=== PATIENT | female | born 1990 | race Caucasian/White ===

== ENCOUNTER 2017-09-28 09:03 | Emergency (ER) | payer OTHER, SELFPAY ==
[2017-09-28 11:05] LABS: Absolute Monocytes 0.5 K/uL (0.1-1.3); Absolute Neutrophil 5.4 K/uL (1.8-8.0); Basophils % 0.3 % (0-1.3); Eosinophils % 1.4 % (0-4.4); Hematocrit 39.3 % (36.0-45.0); Lymphocytes % 25.3 % (15.3-44.8); MCH 28.5 pg (27.0-35.0); MCV 83.9 fL (80-100); MPV 8.9 fL (7.6-11.3); Monocytes % 6.4 % (3.3-12.3); RBC Red Blood Cell Count 4.68 M/uL (3.86-4.86)
[2017-09-28 11:17] LABS: Bicarbonate 26 mEq/L (21-31); Glucose Level 65 mg/dL (65-120); Potassium 3.5 mEq/L (3.6-5.0); Sodium Level 139 mEq/L (135-145)
[2017-09-28 11:18] LABS: BUN Blood Urea Nitrogen 14 mg/dL (6-20)
[2017-09-28 11:26] LABS: HCG, Quantitative 149.1 mIU/mL (<5)
--- NOTE | 2017-09-28 13:05 | RAD REPORT ---
EXAM DESCRIPTION: US - Transvaginal OB - 09/28/2017 12:56 pm CLINICAL HISTORY: Pelvic pain. COMPARISON: None. FINDINGS: The uterus is normal in size, shape and echotexture. The uterus measures 7.5 x 6.7 x 5.4 c m. The endometrial stripe measures 17 mm, thickened. No gestational sac seen. Both ovaries are normal in size, shape and echotexture. The right ovary measures 6.2 x 4.6 x 3.1 cm. The left ovary measures 3.8 x 2.1 x 1.9 cm. 3.3 x 2.9 cm right ovarian cyst. No adnexal masses. Normal Doppler blood flow was demonstrated to both ovaries. No pelvic ascites. IMPRESSION: Thickened endometrial stripe is noted without evidence of a gestational sac at this time .In the setting of a elevated HCG level, the findings would indicate of unknown location. Advise followup sonogram in 7-10 days and serial HCG level measurements.
--- NOTE | 2017-09-28 13:09 | EDPHYS ---
Physician Documentation [facility] Name: Tabby Mcneill Age: 26 yrs Sex: Female : 1990 Arrival Date: 09/28/2017 Time: 09:06 Bed 24 Private MD: None, None ED Physician Shailesh Draper HPI: 09/28 10:30 This 26 yrs old Female presents to ER via Ambulatory with complaints of kb check. 10:30 The patient presents to the emergency department with history of ectopic pregnancies. kb course: care: none, Leakage of Fluid: none appreciated, Ultrasound: the patient has not had an ultrasound, Risk/complications: no obvious risks or complications are appreciated. Previous pregnancies: in previous pregnancies patient has had ectopic . Associated signs and symptoms: The patient has no apparent associated signs or symptoms. The patient has not experienced similar symptoms in the past. The patient has not recently seen a physician. Pt states she has had two ectopic pregnancies in the past and was told she needs to be checked for that each time she finds out she is . States she found out she was this morning so she came to make sure it wasn't ectopic. States she was able to take methotrexate both times so no surgical intervention was necessary. 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 - Social history:: Smoking status: Patient/guardian denies using tobacco. ROS: 10:30 Constitutional: Negative for fever, chills, and weight loss, ENT: Negative for injury, kb pain, and discharge, Neck: Negative for injury, pain, and swelling, Cardiovascular: Negative for chest pain, palpitations, and edema, Respiratory: Negative for shortness of breath, cough, wheezing, and pleuritic chest pain, Abdomen/GI: Negative for abdominal pain, nausea, vomiting, diarrhea, and constipation, Back: Negative for injury and pain, : Negative for injury, bleeding, discharge, and swelling, MS/Extremity: Negative for injury and deformity, Skin: Negative for injury, rash, and discoloration, Neuro: Negative for headache, weakness, numbness, tingling, and seizure. Exam: 10:30 Constitutional: This is a well developed, well nourished patient who is awake, alert, kb and in no acute distress. Head/Face: Normocephalic, atraumatic. ENT: Nares patent. No nasal discharge, no septal abnormalities noted. Tympanic membranes are normal and external auditory canals are clear. Oropharynx with no redness, swelling, or masses, exudates, or evidence of obstruction, uvula midline. Mucous membranes moist. Neck: Trachea midline, no thyromegaly or masses palpated, and no cervical lymphadenopathy. Supple, full range of motion without nuchal rigidity, or vertebral point tenderness. No Meningismus. Chest/axilla: Normal chest wall appearance and motion. Nontender with no deformity. No lesions are appreciated. Cardiovascular: Regular rate and rhythm with a normal S1 and S2. No gallops, murmurs, or rubs. Normal PMI, no JVD. No pulse deficits. Respiratory: Lungs have equal breath sounds bilaterally, clear to auscultation and percussion. No rales, rhonchi or wheezes noted. No increased work of breathing, no retractions or nasal flaring. Abdomen/GI: Soft, non-tender, with normal bowel sounds. No distension or tympany. No guarding or rebound. No evidence of tenderness throughout. Back: No spinal tenderness. No costovertebral tenderness. Full range of motion. Skin: Warm, dry with normal turgor. Normal color with no rashes, no lesions, and no evidence of cellulitis. MS/ Extremity: Pulses equal, no cyanosis. Neurovascular intact. Full, normal range of motion. Neuro: Awake and alert, GCS 15, oriented to person, place, time, and situation. Cranial nerves II-XII grossly intact. Motor strength 5/5 in all extremities. Sensory grossly intact. Cerebellar exam normal. Normal gait. Vital Signs: 09:28 BP 135 / 70; Pulse 70; Resp 16; Temp 97.3; Pulse Ox 99% on R/A; Weight 86.18 kg; Height iw 5 ft. 8 in. (172.72 cm); Pain 0/10; 12:09 BP 114 / 64; Pulse 56; Resp 18; Pulse Ox 100% on R/A; aj1 13:10 BP 107 / 65; Pulse 62; Resp 18; Pulse Ox 99% ; aj1 09:28 Body Mass Index 28.89 (86.18 kg, 172.72 cm) iw MDM: 10:02 Patient medically screened. kb 10:30 Data reviewed: vital signs, nurses notes. Data interpreted: Pulse oximetry: on room air kb is 99 %. Interpretation: normal. 13:06 Counseling: I had a detailed discussion with the patient and/or guardian regarding: the kb historical points, exam findings, and any diagnostic results supporting the discharge/admit diagnosis, lab results, radiology results, the need for outpatient follow up, an OB/Gyne specialist, to return to the emergency department if symptoms worsen or persist or if there are any questions or concerns that arise at home. 13:09 ED course: Educated on need for follow up US and serial HCG levels. Verbal kb understanding received. . 09/28 10:10 Order name: Quantitative Hcg; Complete Time: 11:37 kb 09/28 10:10 Order name: Abo/rh Typing; Complete Time: 11:37 kb 09/28 10:10 Order name: Basic Metabolic Panel; Complete Time: 11:37 kb 09/28 10:10 Order name: CBC with Diff; Complete Time: 11:12 kb 09/28 10:43 Order name: Urine Dipstick--Ancillary (enter results) ag 09/28 10:43 Order name: Urine --Ancillary (enter results) ag 09/28 10:10 Order name: Urine Test (obtain specimen); Complete Time: 10:13 kb 09/28 10:10 Order name: IV Saline Lock; Complete Time: 12:08 kb 09/28 10:10 Order name: Labs collected and sent; Complete Time: 12:08 kb 09/28 10:10 Order name: NPO; Complete Time: 10:13 kb 09/28 10:10 Order name: Urine Dipstick-Ancillary (obtain specimen); Complete Time: 10:13 kb 09/28 11:38 Order name: US Transvaginal Ob; Complete Time: 13:05 kb Administered Medications: No medications were administered Disposition: 09/28/17 13:09 Discharged to Home. Impression: Less than 8 weeks gestation of . - Condition is Stable. - Discharge Instructions: First Trimester of , [id number]. - Medication Reconciliation Form, Thank You Letter, Antibiotic Education, Prescription Opioid Use form. - Follow up: Emergency Department; When: As needed; Reason: Worsening of condition. Follow up: Private Physician; When: 2 - 3 days; Reason: Recheck today's complaints, Continuance of care, Re-evaluation by your physician. Addendum: 10/01/2017 08:18 Co-signature as Attending Physician, Shailesh Draper MD I agree with the assessment and c vázquez plan of care. Signatures: Dispatcher [employer] EDOK Randi Beaver, LEELEE-C LEELEE-Philly Rodrigues RN RN aj1 Shailesh Draper MD MD cha Williams, Irene RN RN iw Corrections: (The following items were deleted from the chart) 09/28 13:37 13:09 09/28/2017 13:09 Discharged to Home. Impression: Less than 8 weeks gestation of aj1 . Condition is Stable. Forms are Medication Reconciliation Form, Thank You Letter, Antibiotic Education, Prescription Opioid Use. Follow up: Emergency Department; When: As needed; Reason: Worsening of condition. Follow up: Private Physician; When: 2 - 3 days; Reason: Recheck today's complaints, Continuance of care, Re-evaluation by your physician. kb
--- NOTE | 2017-09-28 13:09 | ER ---
Nurse's Notes [facility] Name: Tabby Mcneill Age: 26 yrs Sex: Female : 1990 Arrival Date: 09/28/2017 Time: 09:06 Bed 24 Private MD: None, None Diagnosis: Less than 8 weeks gestation of Presentation: 09/28 09:25 Presenting complaint: Patient states: had had 2 previous ectopic pregnancies, just iw found out she is , was told that she needed to be checked for ectopic if she ever became again, pt denies pian, denies bleeding, does not currently have OB, but was seen by Dr. Mathew in January. Transition of care: patient was not received from another setting of care. Onset of symptoms was September 28, 2017. Initial Sepsis Screen: Does the patient meet any 2 criteria? No. Patient's initial sepsis screen is negative. Does the patient have a suspected source of infection? No. Patient's initial sepsis screen is negative. Care prior to arrival: None. 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 - Social history:: Smoking status: Patient/guardian denies using tobacco. Screenin:17 Abuse screen: Denies threats or abuse. Denies injuries from another. Nutritional aj1 screening: No deficits noted. Tuberculosis screening: No symptoms or risk factors identified. 13:37 Fall Risk None identified. aj1 Assessment: 10:17 General: Appears in no apparent distress. comfortable, Behavior is calm, cooperative, aj1 appropriate for age. Pain: Denies pain. Neuro: Level of Consciousness is awake, alert, obeys commands, Oriented to person, place, time, situation, Speech is normal, Facial symmetry appears normal. Cardiovascular: Patient's skin is warm and dry. Respiratory: Airway is patent Respiratory effort is even, unlabored, Respiratory pattern is regular, symmetrical. GI: No signs and/or symptoms were reported involving the gastrointestinal system. : Reports that she has had 2 previous ectopic pregnancies, with the first she had vaginal bleeding, but with the second she did not have any symptoms. States that she was told by her OB to come in immediately if she had a positive test. Denies vaginal bleeding, cramping. EENT: No signs and/or symptoms were reported regarding the EENT system. Derm: No signs and/or symptoms reported regarding the dermatologic system. Skin is pink, warm \T\ dry. normal. Musculoskeletal: No signs and/or symptoms reported regarding the musculoskeletal system. Circulation, motion, and sensation intact. 11:10 Reassessment: Patient appears in no apparent distress at this time. No changes from aj1 previously documented assessment. Patient and/or family updated on plan of care and expected duration. Pain level reassessed. Patient is alert, oriented x 3, equal unlabored respirations, skin warm/dry/pink. 12:09 Reassessment: Patient appears in no apparent distress at this time. No changes from aj1 previously documented assessment. Patient and/or family updated on plan of care and expected duration. Pain level reassessed. Patient is alert, oriented x 3, equal unlabored respirations, skin warm/dry/pink. 13:10 Reassessment: Patient appears in no apparent distress at this time. No changes from aj1 previously documented assessment. Patient and/or family updated on plan of care and expected duration. Pain level reassessed. Patient is alert, oriented x 3, equal unlabored respirations, skin warm/dry/pink. Vital Signs: 09:28 BP 135 / 70; Pulse 70; Resp 16; Temp 97.3; Pulse Ox 99% on R/A; Weight 86.18 kg; Height iw 5 ft. 8 in. (172.72 cm); Pain 0/10; 12:09 BP 114 / 64; Pulse 56; Resp 18; Pulse Ox 100% on R/A; aj1 13:10 BP 107 / 65; Pulse 62; Resp 18; Pulse Ox 99% ; aj1 09:28 Body Mass Index 28.89 (86.18 kg, 172.72 cm) ED Course: 09:06 Patient arrived in ED. mr 09:07 None, None is Private Physician. mr 09:28 Triage completed. iw 09:28 Arm band placed on. iw 09:53 Randi Beaver [facility]C [facility]. kb 09:53 Shailesh Draper MD is Attending Physician. kb 10:00 Philly Mathews, RN is Primary Nurse. aj1 10:17 Patient has correct armband on for positive identification. Bed in low position. Call aj1 light in reach. Side rails up X 1. 10:17 No provider procedures requiring assistance completed. aj1 12:56 Ultrasound completed. Patient tolerated well. cy 12:57 US Transvaginal Ob In Process Unspecified. EDMS 13:36 IV discontinued, intact, bleeding controlled, No redness/swelling at site. Pressure aj1 dressing applied. Administered Medications: No medications were administered Outcome: 13:09 Discharge ordered by . kb 13:37 Discharged to home ambulatory. aj1 13:37 Condition: good 13:37 Discharge instructions given to patient, Instructed on discharge instructions, follow up and referral plans. Demonstrated understanding of instructions, follow-up care. 13:37 Patient left the ED. aj1 Signatures: Dispatcher [employer] EDMS Randi Beaver FNP-C FNP-Philly Rodrigues, RN RN Preeti Flores Irene, RN RN Jolanta Nur
[2017-09-28 13:40] LABS: Urine Blood NEGATIVE (NEG); Urine Glucose NEGATIVE (NEG); Urine Protein NEGATIVE (NEG); Urine Specific Gravity 1.015 (1.005-1.030); Urine pH 6.5 (5.0-7.0)
== END 2017-09-28 13:37 | disposition home or self-care (01) ==
LOC: ER 09:03
DX: Z32.01 Encounter for pregnancy test, result positive (principal)
CPT/HCPCS: 36415; 76817; 80048; 81003; 81025; 84702; 85025; 86900; 86901; 99283

== ENCOUNTER 2017-10-23 16:56 | Emergency (ER) | payer OTHER ==
[2017-10-23 18:30] LABS: Urine Blood 2+ (NEG); Urine Glucose NEGATIVE (NEG); Urine Protein NEGATIVE (NEG)
[2017-10-23 19:22] LABS: Absolute Lymphocytes (CBC) 2.7 K/uL (0.7-4.9); Absolute Monocytes 0.5 K/uL (0.1-1.3); Absolute Neutrophil 5.3 K/uL (1.8-8.0); Eosinophils % 1.8 % (0-4.4); Hematocrit 38.7 % (36.0-45.0); Lymphocytes % 30.7 % (15.3-44.8); MCV 84.9 fL (80-100); MPV 8.7 fL (7.6-11.3); Monocytes % 5.9 % (3.3-12.3); RBC Red Blood Cell Count 4.56 M/uL (3.86-4.86)
[2017-10-23] MEDS ORDERED: NA CHLORIDE 0.9% 1,000 ML ONE (19:23)
[2017-10-23 19:35] LABS: Bicarbonate 27 mEq/L (21-31); Glucose Level 103 mg/dL (65-120); Potassium 3.6 mEq/L (3.6-5.0); Sodium Level 138 mEq/L (135-145)
[2017-10-23 19:36] LABS: BUN Blood Urea Nitrogen 8 mg/dL (6-20)
--- NOTE | 2017-10-23 20:33 | RAD REPORT ---
EXAM DESCRIPTION: US - Transvaginal OB - 10/23/2017 6:59 pm CLINICAL HISTORY: with abdominal pain and vaginal bleeding COMPARISON: None. FINDINGS: The uterus is retroverted. The endometrial stripe measures 24 millimeters. A gestational s ac is not seen. A 2.8 centimeter right ovarian cyst is present. A 2.6 centimeter structure abuts the left ovary. It has an echogenic rim and a sonolucent center. It contains a small lucency which could represent a yolk sac. In addition there is a 6 millimeter echoge shila structure which could represent an embryo. Cardiac activity was not seen. A small amount of free fluid is present within the pelvis. IMPRESSION: Nonvisualization of a gestational sac within the endometrium. A 2.6 centimeter structure within the left adnexa suspicious for an ectopic .
[2017-10-23 20:57] LABS: Albumin 4.1 g/dL (3.2-5.5); Bilirubin Direct 0.1 mg/dL (0-0.2); Bilirubin Total 0.5 mg/dL (0.3-1.2); Protein, Total 7.4 g/dL (6.0-8.3)
--- NOTE | 2017-10-23 21:17 | P.CNS ---
Date of Consult: 10/23/17 CC: bleeding x2 days. Known HPI: pt is familiar to me from clinic and presents today due to VB. Per review of records, she is 8 weeks . However, she has a h/o ectopic pregnancies x2 in the past, treated with MTX. Last known ectopic and treatment was associated with the right ovary. Currently, she denies pain. with hx ectopic treated with MTX x2 occurrences previously LMP: 08/28/2017, corresponding to 8w0d U/S review: tretroverted uterus with thickened endometrial stripe without IUP. There is a 2.6 cm structure para- ovarian on the left with pole and no cardiac activity Vitals: reviewed, normal B-hC mIU/mL CBC/CMP/T&S reviewed. LFTs: WNL PMHX: endometriosis?/PCOS PSHx: appendectomy Meds: None Allergies: NKDA Social Hx: no substance use, denies tobacco use or alcohol intake PE: Gen: NAD, appears comfortable Heart: RRR, normal S1/S2 Lungs: CTA B/L, normal effort Abd: soft, NT, ND Pelvic: Deferred Skin: warm, dry, no rashes, normal turgor Psych: appropriate, tearful during discussion A/p: 26 y.o. with left tubal ectopic Based on findings and history, discussed with patient surgery versus treatment with MTX 50 mg/m^2 x1 IM. She declines surgical intervention. Patient aware of need for follow up labs on days 4 and 7 and possible need to retreat pending levels. She agrees to close follow with serial measurements of serum hCG as indicated. Orders given for outpatient lab draw. I strongly recommend contraception and follow up studies including HSG versus tubal dye study prior to attempting once again due to risk of ectopic recurrence. Pt verbalized understanding and agreed. Questions answered. Plan of care discussed with ER physician Dr. Segal.
--- NOTE | 2017-10-23 22:50 | EDPHYS ---
Physician Documentation [facility] Name: Tabby Lagos Age: 26 yrs Sex: Female : 1990 Arrival Date: 10/23/2017 Time: 16:58 Bed 26 Private MD: Noemí Alvarez ED Physician Esteban Segal HPI: 10/23 22:13 This 26 yrs old Female presents to ER via Ambulatory with complaints of gs Vaginal Bleeding, + Preg <12wks. 22:13 The patient presents to the emergency department with vaginal bleeding, described as gs spotting. The estimated gestational age is 6 weeks. Associated signs and symptoms: Pertinent negatives: abdominal pain, chest pain. The patient has experienced similar episodes in the past, a few times. The patient has been recently seen by a physician: Dr. alvarez. 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 - Social history:: Smoking status: Patient/guardian denies using tobacco. - Ebola Screening: : Patient negative for fever greater than or equal to 101.5 degrees Fahrenheit, and additional compatible Ebola Virus Disease symptoms Patient denies exposure to infectious person Patient denies travel to an Ebola-affected area in the 21 days before illness onset No symptoms or risks identified at this time. ROS: 22:13 All other systems are negative. gs Exam: 22:13 Head/Face: Normocephalic, atraumatic. Eyes: Pupils equal round and reactive to light, gs extra-ocular motions intact. Lids and lashes normal. Conjunctiva and sclera are non-icteric and not injected. Cornea within normal limits. Periorbital areas with no swelling, redness, or edema. ENT: Nares patent. No nasal discharge, no septal abnormalities noted. Tympanic membranes are normal and external auditory canals are clear. Oropharynx with no redness, swelling, or masses, exudates, or evidence of obstruction, uvula midline. Mucous membranes moist. Neck: Trachea midline, no thyromegaly or masses palpated, and no cervical lymphadenopathy. Supple, full range of motion without nuchal rigidity, or vertebral point tenderness. No Meningismus. Chest/axilla: Normal chest wall appearance and motion. Nontender with no deformity. No lesions are appreciated. Cardiovascular: Regular rate and rhythm with a normal S1 and S2. No gallops, murmurs, or rubs. Normal PMI, no JVD. No pulse deficits. Respiratory: Lungs have equal breath sounds bilaterally, clear to auscultation and percussion. No rales, rhonchi or wheezes noted. No increased work of breathing, no retractions or nasal flaring. Abdomen/GI: Soft, non-tender, with normal bowel sounds. No distension or tympany. No guarding or rebound. No evidence of tenderness throughout. Back: No spinal tenderness. No costovertebral tenderness. Full range of motion. Skin: Warm, dry with normal turgor. Normal color with no rashes, no lesions, and no evidence of cellulitis. MS/ Extremity: Pulses equal, no cyanosis. Neurovascular intact. Full, normal range of motion. Neuro: Awake and alert, GCS 15, oriented to person, place, time, and situation. Cranial nerves II-XII grossly intact. Motor strength 5/5 in all extremities. Sensory grossly intact. Cerebellar exam normal. Normal gait. 22:13 Constitutional: The patient appears alert, awake. Vital Signs: 17:22 BP 132 / 75; Pulse 76; Resp 16; Temp 98.1; Pulse Ox 98% on R/A; Weight 90.72 kg; Height aj 5 ft. 8 in. (172.72 cm); 19:14 BP 123 / 68; Pulse 73; Temp 98.7; Pulse Ox 99% ; jb5 19:43 BP 127 / 77; Pulse 73; Resp 18; Pulse Ox 100% ; aj1 20:30 BP 122 / 75; Pulse 75; Resp 18; Pulse Ox 99% ; aj1 21:40 Weight 90.72 kg; Height 5 ft. 8 in. (172.72 cm); kr2 22:58 BP 129 / 91; Pulse 73; Resp 16; Pulse Ox 99% on R/A; kr2 21:40 Body Mass Index 30.41 (90.72 kg, 172.72 cm) kr2 MDM: 18:24 Patient medically screened. gs 22:13 Differential diagnosis: threatened Ab, inevitable Ab, ectopic . Data reviewed: vital signs, nurses notes. Response to treatment: the patient's symptoms have markedly improved after treatment, and as a result, I will discharge patient. Physician consultation: Noemí Alvarez MD and will see patient in ED. 10/23 18:20 Order name: Urine Dipstick--Ancillary (enter results) 10/23 18:20 Order name: Urine --Ancillary (enter results) 10/23 18:24 Order name: Quantitative Hcg; Complete Time: 20:27 10/23 18:24 Order name: Basic Metabolic Panel; Complete Time: 20:27 10/23 18:24 Order name: CBC with Diff; Complete Time: 20:27 10/23 18:24 Order name: IV Saline Lock; Complete Time: 19:15 10/23 18:24 Order name: Labs collected and sent; Complete Time: 19:15 10/23 18:24 Order name: US Transvaginal Ob; Complete Time: 20:36 10/23 18:57 Order name: Type And Screen; Complete Time: 20:27 10/23 20:35 Order name: Hepatic Function 10/23 20:36 Order name: Liver (Hepatic) Function; Complete Time: 21:14 [facility] 10/23 18:24 Order name: NPO; Complete Time: 19:08 Administered Medications: Discontinued: NS 0.9% 1000 ml IV at 125 ml/hr continuous 19:24 Drug: NS 0.9% 1000 ml Route: IV; Rate: 125 ml/hr; Site: left antecubital; aj1 22:55 Follow up: Response: No adverse reaction; IV Status: Order to discontinue infusion kr2 22:39 Drug: methotrexate 50 mg Route: IM; Site: right gluteus; kr2 22:58 Follow up: Response: No adverse reaction kr2 Disposition: 10/23/17 22:49 Discharged to Home. Impression: Ectopic . - Condition is Stable. - Discharge Instructions: Methotrexate Treatment for an Ectopic , Ectopic , [id number]. - Medication Reconciliation Form, Thank You Letter, Antibiotic Education, Prescription Opioid Use form. - Follow up: Noemí Alvarez; When: 1 - 2 days; Reason: Re-evaluation by your physician. - Problem is new. - Symptoms have improved. Signatures: Dispatcher [employer] [facility] Philly Mathews RN RN aj1 Edyta Puga RN RN aj Esteban Segal MD MD gs Starr Purcell RN RN kr2 Cristobal Rojas MD MD ps1 Corrections: (The following items were deleted from the chart) 19:17 18:25 ABO/RH TYPING+[id number].BRZ ordered. [facility] 23:01 22:49 10/23/2017 22:49 Discharged to Home. Impression: Ectopic . Condition is kr2 Stable. Discharge Instructions: Methotrexate Treatment for an Ectopic , Ectopic , [id number]. Forms are Medication Reconciliation Form, Thank You Letter, Antibiotic Education, Prescription Opioid Use. Follow up: Noemí Alvarez; When: 1 - 2 days; Reason: Re-evaluation by your physician. Problem is new. Symptoms have improved. ps1
--- NOTE | 2017-10-23 22:50 | ER ---
Nurse's Notes [facility] Name: Tabby Lagos Age: 26 yrs Sex: Female : 1990 Arrival Date: 10/23/2017 Time: 16:58 Bed 26 Private MD: Noemí Mathew Diagnosis: Ectopic Presentation: 10/23 17:21 Presenting complaint: Patient states: Vaginal bleeding with clots that started aj yesterday and recently increased. Transition of care: patient was not received from another setting of care. Onset of symptoms was October 23, 2017. Risk Assessment: Do you want to hurt yourself or someone else? Patient reports no desire to harm self or others. Care prior to arrival: None. 17:21 Method Of Arrival: Ambulatory aj 17:21 Acuity: PACO 3 aj 21:00 Initial Sepsis Screen: Does the patient meet any 2 criteria? No. Patient's initial aj1 sepsis screen is negative. Does the patient have a suspected source of infection? No. Patient's initial sepsis screen is negative. Triage Assessment: 17:22 General: Appears in no apparent distress. comfortable, Behavior is calm, cooperative, aj appropriate for age. Pain: Denies pain. Neuro: Level of Consciousness is awake, alert, obeys commands, Oriented to person, place, time, situation, Appropriate for age. Respiratory: Airway is patent Respiratory effort is even, unlabored, Respiratory pattern is regular, symmetrical. : Reports vaginal bleeding that is with clots, light flow. Derm: Skin is intact, is healthy with good turgor, Skin is pink, warm \T\ dry. normal. 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 - Social history:: Smoking status: Patient/guardian denies using tobacco. - Ebola Screening: : Patient negative for fever greater than or equal to 101.5 degrees Fahrenheit, and additional compatible Ebola Virus Disease symptoms Patient denies exposure to infectious person Patient denies travel to an Ebola-affected area in the 21 days before illness onset No symptoms or risks identified at this time. Screenin:18 Abuse screen: Denies threats or abuse. Denies injuries from another. Nutritional aj1 screening: No deficits noted. Tuberculosis screening: No symptoms or risk factors identified. 21:00 Fall Risk None identified. kr2 Assessment: 18:18 General: Appears in no apparent distress. comfortable, Behavior is calm, cooperative, aj1 appropriate for age. Pain: Denies pain. Neuro: Level of Consciousness is awake, alert, obeys commands, Oriented to person, place, time, situation. Cardiovascular: Patient's skin is warm and dry. Respiratory: Airway is patent Respiratory pattern is regular, symmetrical. GI: No signs and/or symptoms were reported involving the gastrointestinal system. : Reports vaginal bleeding that is with clots, light flow, Patient has had 2 previous ectopic pregnancies. EENT: No signs and/or symptoms were reported regarding the EENT system. Derm: No signs and/or symptoms reported regarding the dermatologic system. Skin is pink, warm \T\ dry. normal. Musculoskeletal: No signs and/or symptoms reported regarding the musculoskeletal system. Circulation, motion, and sensation intact. 19:43 Reassessment: Patient appears in no apparent distress at this time. No changes from aj1 previously documented assessment. Patient and/or family updated on plan of care and expected duration. Pain level reassessed. Patient is alert, oriented x 3, equal unlabored respirations, skin warm/dry/pink. 20:58 Reassessment: Patient appears in no apparent distress at this time. No changes from aj1 previously documented assessment. Patient and/or family updated on plan of care and expected duration. Pain level reassessed. Patient is alert, oriented x 3, equal unlabored respirations, skin warm/dry/pink. Vital Signs: 17:22 BP 132 / 75; Pulse 76; Resp 16; Temp 98.1; Pulse Ox 98% on R/A; Weight 90.72 kg; Height aj 5 ft. 8 in. (172.72 cm); 19:14 BP 123 / 68; Pulse 73; Temp 98.7; Pulse Ox 99% ; jb5 19:43 BP 127 / 77; Pulse 73; Resp 18; Pulse Ox 100% ; aj1 20:30 BP 122 / 75; Pulse 75; Resp 18; Pulse Ox 99% ; aj1 21:40 Weight 90.72 kg; Height 5 ft. 8 in. (172.72 cm); kr2 22:58 BP 129 / 91; Pulse 73; Resp 16; Pulse Ox 99% on R/A; kr2 21:40 Body Mass Index 30.41 (90.72 kg, 172.72 cm) kr2 ED Course: 16:58 Patient arrived in ED. as 16:58 Noemí Mathew MD is Private Physician. as 17:22 Triage completed. aj 17:22 Arm band placed on left wrist. Patient placed in waiting room, Patient notified of wait aj time. 18:06 Esteban Segal MD is Attending Physician. gs 18:08 Philly Mathews, RN is Primary Nurse. aj1 18:18 Patient has correct armband on for positive identification. Bed in low position. Call aj1 light in reach. Side rails up X 1. 18:18 No provider procedures requiring assistance completed. aj1 18:59 US Transvaginal Ob In Process Unspecified. EDMS 19:12 Inserted saline lock: 20 gauge in right antecubital area, using aseptic technique. jb5 Blood collected. 22:49 Noemí Mathew MD is Referral Physician. ps1 23:00 IV discontinued, intact, bleeding controlled, No redness/swelling at site. Pressure kr2 dressing applied. Administered Medications: Discontinued: NS 0.9% 1000 ml IV at 125 ml/hr continuous 19:24 Drug: NS 0.9% 1000 ml Route: IV; Rate: 125 ml/hr; Site: left antecubital; aj1 22:55 Follow up: Response: No adverse reaction; IV Status: Order to discontinue infusion kr2 22:39 Drug: methotrexate 50 mg Route: IM; Site: right gluteus; kr2 22:58 Follow up: Response: No adverse reaction kr2 Outcome: 22:49 Discharge ordered by . ps1 22:59 Discharged to home ambulatory, with family. kr2 22:59 Condition: good 22:59 Discharge instructions given to patient, Instructed on discharge instructions, follow up and referral plans. medication usage, follow up lab ordered for morning of 10/27/17 Demonstrated understanding of instructions, follow-up care, medications, lab draw on 10/27/17 and methotrexate 23:01 Patient left the ED. kr2 Signatures: Dispatcher [employer] EDME Reid Philly, RN RN susi1 Edyta Puga RN RN aj Martinez, Amelia as Broussard, Jennifer jb5 Esteban Segal MD MD gs Starr Purcell RN RN kr2 Cristobal Rojas MD MD ps1 Corrections: (The following items were deleted from the chart) 23:05 23:05 Response: No adverse reaction; IV Status: Order to discontinue infusion kr2 kr2
[2017-10-23] MEDS ORDERED: METHOTREXATE 25 MG/ML VIAL IM ONE (23:00)
== END 2017-10-23 23:01 | disposition home or self-care (01) ==
LOC: ER 16:56
DX: O00.90 Unspecified ectopic pregnancy without intrauterine pregnancy (principal); Z3A.01 Less than 8 weeks gestation of pregnancy
CPT/HCPCS: 36415; 76817; 80048; 80076; 81003; 81025; 84702; 85025; 86850; 86900; 86901; 96360; 96361; 96372; 99284; J7030

== ENCOUNTER 2017-11-08 17:58 | Emergency (ER) | payer OTHER ==
--- OUTSIDE RECORDS SUMMARY | 2017-11-08 18:00 | XMS REPORT ---
:1990 Author Organization [employer] Care Team Providers Name Role Phone Noemí Mathew Provider Role Unavailable Allergies, Adverse Reactions, Alerts Substance Reaction Event Type N.K.D.A. Info Not Available Non Drug Allergy Problems Problem Type Condition Code Onset Dates Condition Status Assessment Left tubal without O00.102 Active intrauterine Assessment History of ectopic Z87.59 Active Problem History of ectopic Z87.59 Active Medications No Known Medications Results No Known Results Summary Purpose [employer] Submission
[2017-11-08 20:06] LABS: Absolute Lymphocytes (CBC) 2.5 K/uL (0.7-4.9); Absolute Monocytes 0.5 K/uL (0.1-1.3); Absolute Neutrophil 5.9 K/uL (1.8-8.0); Basophils % 0.9 % (0-1.3); Eosinophils % 2.2 % (0-4.4); Hematocrit 37.6 % (36.0-45.0); Lymphocytes % 27.1 % (15.3-44.8); MCH 28.9 pg (27.0-35.0); MCV 85.4 fL (80-100); MPV 8.2 fL (7.6-11.3); Monocytes % 5.9 % (3.3-12.3)
[2017-11-08 20:20] LABS: Urine Blood NEGATIVE (NEG); Urine Glucose NEGATIVE (NEG); Urine Protein NEGATIVE (NEG)
[2017-11-08 20:34] LABS: Potassium 3.4 mmol/L (3.5-5.1)
--- NOTE | 2017-11-08 20:42 | ER ---
Nurse's Notes [facility] Name: Tabby Lagos Age: 26 yrs Sex: Female : 1990 Arrival Date: 11/08/2017 Time: 18:00 Bed 26 Private MD: Diagnosis: Ectopic , unspecified Presentation: 11/08 18:43 Presenting complaint: Patient states: Im here for a repeat HCG test, the first one was sg drawn on the 14, denies pain nausea vomiting, fever. reports just here to have my levels checked. Transition of care: patient was not received from another setting of care. Onset of symptoms was November 08, 2017. Risk Assessment: Do you want to hurt yourself or someone else? Patient reports no desire to harm self or others. Initial Sepsis Screen: Does the patient meet any 2 criteria? No. Patient's initial sepsis screen is negative. Does the patient have a suspected source of infection? No. Patient's initial sepsis screen is negative. Care prior to arrival: None. 18:43 Method Of Arrival: Ambulatory sg 18:43 Acuity: PACO 3 sg Triage Assessment: 19:48 General: Appears in no apparent distress. comfortable, well groomed, well developed, kr2 well nourished, Behavior is calm, cooperative, appropriate for age. Pain: Denies pain. Historical: - Allergies: 18:45 NKA; sg - PMHx: 18:45 ectopic X2; sg - PSHx: 18:45 Appendectomy; sg - Immunization history:: Adult Immunizations up to date. - Social history:: Smoking status: Patient/guardian denies using tobacco. - Ebola Screening: : Patient negative for fever greater than or equal to 101.5 degrees Fahrenheit, and additional compatible Ebola Virus Disease symptoms Patient denies exposure to infectious person Patient denies travel to an Ebola-affected area in the 21 days before illness onset No symptoms or risks identified at this time. Screenin:47 Abuse screen: Denies threats or abuse. Denies injuries from another. Nutritional kr2 screening: No deficits noted. Tuberculosis screening: No symptoms or risk factors identified. Fall Risk None identified. Assessment: 20:08 General: Appears in no apparent distress. comfortable, well groomed, well developed, kr2 well nourished, Behavior is calm, cooperative, appropriate for age. Pain: Denies pain. Neuro: Level of Consciousness is awake, alert, obeys commands, Oriented to person, place, time, situation, Appropriate for age. Cardiovascular: Capillary refill < 3 seconds in bilateral fingers Patient's skin is warm and dry. Respiratory: Airway is patent Respiratory effort is even, unlabored, Respiratory pattern is regular, symmetrical. GI: Abdomen is flat, non-distended. : Urine is clear. EENT: Oral mucosa is moist. Derm: Skin is intact, is healthy with good turgor, Skin is pink, warm \T\ dry. Musculoskeletal: Circulation, motion, and sensation intact. 20:56 Reassessment: Patient appears in no apparent distress at this time. Patient and/or kr2 family updated on plan of care and expected duration. Pain level reassessed. Patient is alert, oriented x 3, equal unlabored respirations, skin warm/dry/pink. Patient denies pain at this time. Vital Signs: 18:48 BP 135 / 92; Pulse 85; Resp 16 S; Temp 98.0; Pulse Ox 100% on R/A; Weight 89.81 kg; sg Height 5 ft. 8 in. (172.72 cm); Pain 0/10; 20:33 BP 122 / 71; Pulse 77; Resp 16; Pulse Ox 99% on R/A; mt 18:48 Body Mass Index 30.11 (89.81 kg, 172.72 cm) sg ED Course: 18:00 Patient arrived in ED. as 18:44 Triage completed. sg 18:44 Arm band placed on left wrist. sg 19:43 Esteban Segal MD is Attending Physician. gs 19:47 Starr Purcell, JOSIAS is Primary Nurse. kr2 19:48 Patient has correct armband on for positive identification. Bed in low position. Call kr2 light in reach. Side rails up X 1. Pulse ox on. NIBP on. Door closed. Warm blanket given. Head of bed elevated. 20:00 Inserted saline lock: 22 gauge in right antecubital area, using aseptic technique. kr2 Blood collected. 20:00 Urine collected: clean catch specimen, clear. kr2 20:41 Noemí Mathew MD is Referral Physician. gs 20:56 No provider procedures requiring assistance completed. IV discontinued, intact, kr2 bleeding controlled, No redness/swelling at site. Pressure dressing applied. Administered Medications: No medications were administered Outcome: 20:41 Discharge ordered by . shilpi 20:56 Discharged to home ambulatory, with family. kr2 20:56 Condition: good 20:56 Discharge instructions given to patient, Instructed on discharge instructions, follow up and referral plans. Demonstrated understanding of instructions, follow-up care. 20:57 Patient left the ED. kr2 Signatures: Fletcher Holman RN RN Joana Segovia Moriah mt Starr, Gregory, MD MD gs Reaves, Karey, RN RN kr2 Corrections: (The following items were deleted from the chart) 18:46 18:43 Acuity: PACO 5 valentin
--- NOTE | 2017-11-08 20:42 | EDPHYS ---
Physician Documentation [facility] Name: Tabby Lagos Age: 26 yrs Sex: Female : 1990 Arrival Date: 11/08/2017 Time: 18:00 Bed 26 Private MD: ED Physician Esteban Segal HPI: 11/08 20:39 This 26 yrs old Female presents to ER via Ambulatory with complaints of HCG gs check. 20:39 Onset: The symptoms/episode began/occurred 1 week(s) ago. treated for ectopic with gs methotrexate. Historical: - Allergies: 18:45 NKA; sg - PMHx: 18:45 ectopic X2; sg - PSHx: 18:45 Appendectomy; sg - Immunization history:: Adult Immunizations up to date. - Social history:: Smoking status: Patient/guardian denies using tobacco. - Ebola Screening: : Patient negative for fever greater than or equal to 101.5 degrees Fahrenheit, and additional compatible Ebola Virus Disease symptoms Patient denies exposure to infectious person Patient denies travel to an Ebola-affected area in the 21 days before illness onset No symptoms or risks identified at this time. ROS: 20:40 All other systems are negative. gs Exam: 20:40 Cardiovascular: Regular rate and rhythm with a normal S1 and S2. No gallops, murmurs, gs or rubs. Normal PMI, no JVD. No pulse deficits. Respiratory: Lungs have equal breath sounds bilaterally, clear to auscultation and percussion. No rales, rhonchi or wheezes noted. No increased work of breathing, no retractions or nasal flaring. Abdomen/GI: Soft, non-tender, with normal bowel sounds. No distension or tympany. No guarding or rebound. No evidence of tenderness throughout. Skin: Warm, dry with normal turgor. Normal color with no rashes, no lesions, and no evidence of cellulitis. MS/ Extremity: Pulses equal, no cyanosis. Neurovascular intact. Full, normal range of motion. Neuro: Awake and alert, GCS 15, oriented to person, place, time, and situation. Cranial nerves II-XII grossly intact. Motor strength 5/5 in all extremities. Sensory grossly intact. Cerebellar exam normal. Normal gait. 20:40 Constitutional: The patient appears alert, awake. Vital Signs: 18:48 BP 135 / 92; Pulse 85; Resp 16 S; Temp 98.0; Pulse Ox 100% on R/A; Weight 89.81 kg; sg Height 5 ft. 8 in. (172.72 cm); Pain 0/10; 20:33 BP 122 / 71; Pulse 77; Resp 16; Pulse Ox 99% on R/A; mt 18:48 Body Mass Index 30.11 (89.81 kg, 172.72 cm) MDM: 20:05 Patient medically screened. 20:40 Data reviewed: vital signs, nurses notes. 11/08 18:46 Order name: CBC with Diff; Complete Time: 20:37 rn 11/08 18:46 Order name: Basic Metabolic Panel; Complete Time: 20:37 rn 11/08 18:46 Order name: HCG-Quantitative; Complete Time: 20:37 rn 11/08 20:09 Order name: Urine Dipstick--Ancillary (enter results); Complete Time: 20:37 [facility] 11/08 20:11 Order name: Urine --Ancillary (enter results); Complete Time: 20:37 [facility] 11/08 18:46 Order name: IV Start; Complete Time: 20:04 rn 11/08 18:46 Order name: Urine Dipstick-Ancillary (obtain specimen); Complete Time: 20:04 rn Administered Medications: No medications were administered Disposition: 11/08/17 20:41 Discharged to Home. Impression: Ectopic , unspecified. - Condition is Stable. - Discharge Instructions: Ectopic , Methotrexate Treatment for an Ectopic . - Medication Reconciliation Form, Thank You Letter, Antibiotic Education, Prescription Opioid Use form. - Follow up: Noemí Mathew MD; When: 2 - 3 days; Reason: Re-evaluation by your physician. Signatures: Dispatcher [employer] EDWA Fletcher Holman RN RN Yordy Vazquez MD MD rn Starr, Gregory, MD MD gs Reaves, Karey RN RN kr2 Corrections: (The following items were deleted from the chart) 20:14 20:10 URINE --ANCILLARY+UC.LAB.BRZ ordered. EDWA EDMS 20:57 20:41 11/08/2017 20:41 Discharged to Home. Impression: Ectopic , unspecified. kr2 Condition is Stable. Forms are Medication Reconciliation Form, Thank You Letter, Antibiotic Education, Prescription Opioid Use. Follow up: Noemí Mathew; When: 2 - 3 days; Reason: Re-evaluation by your physician. gs
== END 2017-11-08 20:57 | disposition home or self-care (01) ==
LOC: ER 17:58
DX: O00.90 Unspecified ectopic pregnancy without intrauterine pregnancy (principal)
CPT/HCPCS: 36415; 80048; 81003; 81025; 84702; 85025; 99284

== ENCOUNTER 2021-05-30 10:17 | Emergency (ER) | payer BC, OTHER ==
--- OUTSIDE RECORDS SUMMARY | 2021-05-30 10:19 | XMS REPORT | Continuity of Care Document ---
:1990 Author Organization [facility] t Address [address] [place] [address] [address] [place] [address] Care Team Providers Name Role Phone Pcp, Does Not Have A Primary Care Physician Nurse, Db Urgent [facility] Attending Clinician Unavailable Dean MACHINE WASHER Attending Clinician DEAN Attending Clinician Unavailable Doctor Unassigned, Name Attending Clinician Unavailable Payers Payer Name Policy Type Policy Number Effective Date Expiration Date S ource Problems Condition Condition Condition Status Onset Resolution Last Treating Co mments Source Name Details Category Date Date Treatment Clinician Date History of History of Problem Active [facility] No known No known Disease Unive rs active active ity of problems problems [facility] Allergies, Adverse Reactions, Alerts Allergy Allergy Status Severity Reaction(s) Onset Inactive Treating Comm ents Source Name Type Date Date Clinician NO KNOWN Drug Active Univers ALLERGIE Class ity of S [facility] Social History Social Habit Start Date Stop Date Quantity Comments Source Exposure to Not sure [facility] SARS-CoV-2 (event) [facility]ica [facility] Branch Alcohol intake 2021-05-30 2021-05-30 0 /d [facility] 00:00:00 00:00:00 [facility] [place] Sex Assigned At [birth year] [facility] 00:00:00 00:00:00 [facility] Smoking Status Start Date Stop Date Source Never smoker [facility] Medications Ordered Filled Start Stop Current Ordering Indication Dosage Frequency Signature Comments Components Source Medication Medication Date Date Medication? Clinician (SIG) Name Name No known No Univers medications 3-13 ity of 18:48: [address] No known No Univers medications 3-13 ity of 18:48: [address] Vital Signs Vital Name Observation Time Observation Value Comments Source Systolic blood 2021-05-30 16:01:00 142 mm[Hg] Univer sity of pressure [facility] Diastolic blood 2021-05-30 16:01:00 96 mm[Hg] Unive rsity of [facility] Heart rate 2021-05-30 16:01:00 82 /min [facility] Body temperature 2021-05-30 16:01:00 36.39 Suzy [facility] Res[facility] rate 2021-05-30 16:01:00 30 /min [facility] Body height 2021-05-30 16:01:00 172.7 cm [facility] Body weight 2021-05-30 16:01:00 91.627 kg [facility] BMI 2021-05-30 16:01:00 30.71 kg/m2 [facility] Oxygen saturation in 2021-05-30 16:01:00 100 /min [facility] Arterial blood by [facility] Pulse oximetry [place] Procedures Procedure Date / Time Performed Performing Clinician Sour e ASSIGNMENT OF BENEFITS 2021-05-30 15:30:53 Doctor Unassigned, No [facility] Encounters Start End Encounter Admission Attending Care Care Encounter Source Date/Time Date/Time Type Type Clinicians Facility Department ID 2021-05-30 2021-05-30 Nurse Nurse, A[facility] [id number] Univers 10:00:00 10:20:00 [facility] [id number] roberta [facility] [id number] [place] ALIX?BLEA [id number] Ar opal [address] MEDICAL OFFICE BUILDING 2021-05-30 2021-05-30 Outpatient R DEAN [facility] [id number] Univers 10:00:00 10:00:00 CARIDAD granados o f [facility] 2021-05-30 2021-05-30 Outpatient R [facility] [id number] Univers 10:00:00 10:00:00 [id number] ity of [facility] 2021-05-30 2021-05-30 Orders Doctor ALYSSA [id number] Univers 00:00:00 00:00:00 Only Unassigned, PIETRO [id number] ity of [place] [facility] [id number] [place] as [id number] [address] 2017-11-08 2017-11-08 Outpatient [place] Antunez [id number] 16:01:00 16:01:00 [facility] 2017-11-07 2017-11-07 Outpatient [place] [id number] 11:27:00 11:27:00 [facility] 2017-10-31 2017-10-31 Outpatient [place] [id number] 15:00:00 15:00:00 [facility] Results This patient has no known results.
--- NOTE | 2021-05-30 11:25 | RAD REPORT ---
EXAM DESCRIPTION: Mellissa Lundberg (2 Views)05/30/2021 11:03 am CLINICAL HISTORY: Shortness of breath COMPARISON: None FINDINGS: The lungs appear clear of acute infiltrate. The heart is normal size IMPRESSION: No acute abnormalities displayed
--- NOTE | 2021-05-30 11:54 | ER ---
Nurse's Notes [facility] Name: Tabby Lagos Age: 30 yrs Sex: Female : 1990 Arrival Date: 05/30/2021 Time: 10:20 Bed 27 Private MD: Diagnosis: Coronavirus infection, unspecified;Dyspnea Presentation: 05/30 10:26 Chief complaint: Patient states: [facility] urgent care sent me here for high blood pressure, ll3 states arms tingling bilaterally, tested positive for covid on Sunday, C/O SOB on exertion, H/A, body aches. Coronavirus screen: congestion, cough unrelated to allergies, difficulty breathing, fatigue, fever, headache, shortness of breath, loss of taste or smell. Ebola Screen: No symptoms or risks identified at this time. Initial Sepsis Screen: Does the patient meet any 2 criteria? No. Patient's initial sepsis screen is negative. Does the patient have a suspected source of infection? No. Patient's initial sepsis screen is negative. Risk Assessment: Do you want to hurt yourself or someone else? Patient reports no desire to harm self or others. Onset of symptoms was May 26, 2021. 10:26 Method Of Arrival: Ambulatory ll3 10:26 Acuity: PACO 3 ll3 Triage Assessment: 10:31 General: Appears in no apparent distress. uncomfortable, Behavior is calm, cooperative. ll3 Pain: Denies pain. Respiratory: Reports shortness of breath on exertion cough that is Onset: The symptoms/episode began/occurred today, the patient has moderate shortness of breath. 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 - Social history:: Smoking status: Patient reports the use of cigarette tobacco products, smokes one pack cigarettes per day. Screenin:55 Abuse screen: Denies threats or abuse. Denies injuries from another. Nutritional ic1 screening: No deficits noted. Tuberculosis screening: No symptoms or risk factors identified. Fall Risk None identified. Exposure risk/Travel Screening: None identified. Assessment: 11:15 General: Appears in no apparent distress. comfortable, Behavior is calm, cooperative. ic1 Pain: Denies pain. Neuro: No deficits noted. Cardiovascular: Rhythm is sinus rhythm. Respiratory: Reports shortness of breath on exertion cough that is Airway is patent Respiratory effort is even, unlabored, GI: No deficits noted. : No deficits noted. EENT: No deficits noted. Derm: No deficits noted. Musculoskeletal: Reports Generalized weakness and fatigue since pos Covid test on last Sunday. Vital Signs: 10:26 BP 154 / 101; Pulse 87; Resp 18; Temp 97.4(TE); Pulse Ox 98% on R/A; Weight 91.63 kg ll3 (R); Height 5 ft. 8 in. (172.72 cm) (R); Pain 0/10; 11:15 BP 133 / 101; Pulse 64; Resp 18; Pulse Ox 99% on R/A; ic1 10:26 Body Mass Index 30.71 (91.63 kg, 172.72 cm) ll3 ED Course: 10:20 Patient arrived in ED. mr 10:31 [facility]C [facility] kb 10:31 Yordy Vazquez MD is Attending Physician. kb 10:31 Triage completed. ll3 10:31 Arm band placed on. ll3 11:00 Chest Pa And Lat (2 Views) XRAY In Process Unspecified. EDMS 11:55 Patient has correct armband on for positive identification. Bed in low position. Call ic1 light in reach. Side rails up X2. Administered Medications: No medications were administered Outcome: 11:53 Discharge ordered by . kb 12:08 Patient left the ED. 5 Signatures: Dispatcher [employer] EDAR Randi Beaver FNP-C FNP-Marcie Brenda JainMartha RN RN 5 Mickie Alvarez RN RN 3 Stephani Hoang RN RN ic1
--- NOTE | 2021-05-30 11:54 | EDPHYS ---
Physician Documentation [facility] Name: Tabby Lagos Age: 30 yrs Sex: Female : 1990 Arrival Date: 05/30/2021 Time: 10:20 Bed 27 Private MD: ED Physician Yordy Vazquez HPI: 05/30 10:58 This 30 yrs old Female presents to ER via Ambulatory with complaints of Covid+, kb Shortness Of Breath, High Blood Pressure. 10:59 The patient or guardian reports difficulty breathing. Onset: The symptoms/episode kb began/occurred today. Severity of symptoms: At their worst the symptoms were moderate, in the emergency department the symptoms have improved. Modifying factors: The symptoms are alleviated by nothing, the symptoms are aggravated by nothing. Associated signs and symptoms: The patient has no apparent associated signs or symptoms. The patient has not experienced similar symptoms in the past. The patient has not recently seen a physician. Pt reports she tested positive for covid last week and did fine, but was back at work today and got short of breath while lifting and moving things. States she was sent to the [facility] clinic for eval and her BP was high so they told her to go to the ER for eval.. 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 - Social history:: Smoking status: Patient reports the use of cigarette tobacco products, smokes one pack cigarettes per day. ROS: 11:01 Constitutional: Negative for fever, chills, and weight loss. kb 11:01 Respiratory: Positive for dyspnea on exertion, shortness of breath, Negative for cough, hemoptysis, orthopnea, pleurisy, sputum production, wheezing. 11:01 All other systems are negative. Exam: 11:01 Constitutional: This is a well developed, well nourished patient who is awake, alert, kb and in no acute distress. Head/Face: Normocephalic, atraumatic. ENT: Moist Mucous membranes Cardiovascular: Regular rate and rhythm with a normal S1 and S2. No gallops, murmurs, or rubs. No pulse deficits. Respiratory: Respirations even and unlabored. No increased work of breathing. Talking in full sentences Skin: Warm, dry with normal turgor. Normal color. MS/ Extremity: Pulses equal, no cyanosis. Neurovascular intact. Full, normal range of motion. Neuro: Awake and alert, GCS 15, oriented to person, place, time, and situation. Moves all extremities. Normal gait. Psych: Awake, alert, with orientation to person, place and time. Behavior, mood, and affect are within normal limits. Vital Signs: 10:26 BP 154 / 101; Pulse 87; Resp 18; Temp 97.4(TE); Pulse Ox 98% on R/A; Weight 91.63 kg ll3 (R); Height 5 ft. 8 in. (172.72 cm) (R); Pain 0/10; 11:15 BP 133 / 101; Pulse 64; Resp 18; Pulse Ox 99% on R/A; ic1 10:26 Body Mass Index 30.71 (91.63 kg, 172.72 cm) ll3 MDM: 10:34 Patient medically screened. kb 11:01 Data reviewed: vital signs, nurses notes. Data interpreted: Pulse oximetry: on room air kb is 98 %. Interpretation: normal. 11:53 Counseling: I had a detailed discussion with the patient and/or guardian regarding: the kb historical points, exam findings, and any diagnostic results supporting the discharge/admit diagnosis, radiology results, the need for outpatient follow up, a family practitioner, to return to the emergency department if symptoms worsen or persist or if there are any questions or concerns that arise at home. 05/30 10:34 Order name: Chest Pa And Lat (2 Views) XRAY; Complete Time: 11:29 kb 05/30 10:42 Order name: EKG; Complete Time: 10:42 kb 05/30 10:42 Order name: EKG - Nurse/Tech kb Administered Medications: No medications were administered Disposition: 13:13 Co-signature as Attending Physician, Yordy Vazquez MD I agree with the assessment and rn plan of care. Attestation: The patient's history, exam findings, diagnostics, and a summary of any interventions or procedures was reviewed in detail with Randi LOPEZ. Disposition Summary: 05/30/21 11:53 Discharge Ordered Location: Home kb Condition: Stable kb Diagnosis - Coronavirus infection, unspecified kb - Dyspnea kb Followup: kb - With: Emergency Department - When: As needed - Reason: Worsening of condition Followup: kb - With: Private Physician - When: 2 - 3 days - Reason: Recheck today's complaints, Continuance of care, Re-evaluation by your physician Discharge Instructions: - Discharge Summary Sheet kb - Viral Respiratory Infection, [id number] kb - COVID-19 kb Forms: - Medication Reconciliation Form kb - Thank You Letter kb - Antibiotic Education kb - Prescription Opioid Use kb Signatures: Dispatcher [employer] EDMS Randi Beaver, MANAGER PROCESS EXCELLENCE-C MANAGER PROCESS EXCELLENCE-Yordy Burns MD MD rn Loubet, Lynsea, RN RN ll3
[2021-05-30 12:14] VITALS: TEMP 97.4
[2021-05-30 12:15] VITALS: BP 133/101; O2SAT 99
--- NOTE | 2021-06-01 07:52 | EKG ---
Test Date: 2021-05-30 Test Time: 11:40:57 [place]: TP MEASUREMENT RESULTS: Intervals: Rate: 62 WY: 122 QRSD: 84 QT: 434 QTc: 440 Ward: P: 22 WY: 122 QRS: 83 T: 52 INTERPRETIVE STATEMENTS: Normal sinus rhythm Normal ECG No previous ECG available for comparison Electronically Signed On 06-01-21 07:46:16 COREMAKING SUPERVISOR by Michael Augustin
== END 2021-05-30 12:08 | disposition home or self-care (01) ==
LOC: ER 10:17
DX: U07.1 COVID-19 (principal); R06.00 Dyspnea, unspecified; F17.210 Nicotine dependence, cigarettes, uncomplicated
CPT/HCPCS: 71046; 93005; 99284

== ENCOUNTER 2024-07-26 12:47 | Inpatient (IN) | payer BC, SELFPAY ==
--- OUTSIDE RECORDS SUMMARY | 2024-07-26 12:50 | XMS REPORT | Continuity of Care Document ---
Author Name Unknown Address [address] [place] [address] [facility] [address] [place] [address] Care Team Providers Care Furnace Combustion Tester Name Role Phone PCP, PATIENT DOES NOT HAVE A Primary Care Physic debbie Unavailable Gladis Starks Attending Clinician [phone] GLADIS FRAIRE Attending Clinician Unavailable Unknown, Attending Attending Clinician Unavailab [facility]io [facility]ending Clin[facility] Un available Caridad Harvey Attending Clinician [phone] CARIDAD MORAN Attending Clinician Unavailabl e Doctor Unassigned, [place] Attending Clinician U navailable Payers Payer Name Policy Type Policy Number Effective Date Expirati on Date Source Problems Condition Name Condition Details Condition Category Status Onset Date Resolution Date Last Treatment Date Treating Clinician Comments Source No known active problems No known active problems Disease [facility] History of ectopic History of ectopic Problem Active [facility] Allergies, Adverse Reactions, Alerts Allergy Name Allergy Type Status Severity Reaction(s) Onset Date Inactive Date Treating Clinician Comments Source NO KNOWN ALLERGIE S Drug Class Active [facility] Social History Social Habit Start Date Stop Date Quantity Comments Source Exposure to SARS-CoV-2 (event) Not sure [facility] function 2023-09-03 00:00:00 2023-09-03 00:00:00 [facility] Alcohol intake 2023-09-03 00:00:00 2023-09-03 00:00:00 0 /d [facility] Tobacco use and exposure 2016-07-31 00:00:00 2016-07-31 00:00:00 Smokeless tobacco non-user [facility] Sex Ass[birth year] At 1990 00:00:00 1990 00:00:00 [facility] Smoking Status Start Date Stop Date Source Never smoked tobacco [facility] Medications Ordered Medication Name Filled Medication Name Start Date Stop Date Current Medication? Ordering Clinician Indication Dosage Frequency Signature (SIG) Comments Components Source naproxen 500 mg tablet 09-02 00:00: 00 09-13 04:59 :00 No [id number] 500mg Take 1 tablet by mouth 2 (two) times daily with meals as needed for Pain (scale 4-6) for up to 10 days. [facility] methocarbam oL 500 mg tablet 09-02 00:00: 00 09-08 04:59 :00 No [id number] 500mg Take 1 tablet by mouth 4 (four) times daily as needed for Pain (scale 7-10) for up to 5 days. [facility] No known medications 07-31 18:48: 37 No [facility] Vital Signs Vital Name Observation Time Observation Value Comments S dontaece Systolic blood pressure 2023-09-03 15:53:00 134 mm[Hg] [facility] Diastolic blood pressure 2023-09-03 15:53:00 85 mm[Hg] [facility] Heart rate 2023-09-03 15:53:00 107 /min [facility] Body temperature 2023-09-03 15:53:00 37 Suzy [facility] Respiratory rate 2023-09-03 15:53:00 20 /min [facility] Body height 2023-09-03 15:53:00 172.7 cm [facility] Body weight 2023-09-03 15:53:00 89.631 kg [facility] BMI 2023-09-03 15:53:00 30.04 kg/m2 [facility] Oxygen saturation in Arterial blood by Pulse oximetry 2023-09-03 15:53:00 99 /min [facility] Systolic blood pressure 2021-05-30 16:01:00 142 mm[Hg] [facility] Diastolic blood pressure 2021-05-30 16:01:00 96 mm[Hg] [facility] Heart rate 2021-05-30 16:01:00 82 /min [facility] Body temperature 2021-05-30 16:01:00 36.39 Suzy [facility] Respiratory rate 2021-05-30 16:01:00 30 /min [facility] Body height 2021-05-30 16:01:00 172.7 cm [facility] Body weight 2021-05-30 16:01:00 91.627 kg [facility] BMI 2021-05-30 16:01:00 30.71 kg/m2 [facility] Oxygen saturation in Arterial blood by Pulse oximetry 2021-05-30 16:01:00 100 /min [facility] Procedures Procedure Date / Time Performed Performing Clinicia n Source XR HIPS 2 VW LEFT 2023-09-03 16:21:35 Gladis Fraire [facility] ASSIGNMENT OF BENEFITS 2021-05-30 15:30:53 Docto r Unassigned, [place] [facility] Encounters Start Date/Time End Date/Time Encounter Type Admission Type Attending Clinicians Care Facility Care Department Encounter ID Source 2023-09-03 11:07:58 2023-09-03 23:59:00 Hospital Encounter Gladis Fraire [facility] [id number] [facility] 2023-09-03 11:07:58 2023-09-03 23:59:00 Outpatient R GLADIS FRAIRE [facility] [id number] [facility] 2023-09-03 10:20:00 2023-09-03 11:16:49 Urgent Care Gladis Fraire Unknown, Attending [facility] [id number] [facility] 2021-05-30 10:00:00 2021-05-30 10:20:00 Nurse Visit Nurse, [facility] [id number] [facility] 2021-05-30 10:00:00 2021-05-30 10:00:00 Outpatient R [facility] [id number] [facility] 2021-05-30 10:00:00 2021-05-30 10:00:00 [id number] 2021-05-30 00:00:00 2021-05-30 00:00:00 Orders Only Doctor Unassigned, [place] [facility] [id number] [facility] 2017-11-08 16:01:00 2017-11-08 16:01:00 [place] [facility] [id number] [facility] 2017-11-07 11:27:00 2017-11-07 11:27:00 [facility] [id number] [facility] 2017-10-31 15:00:00 2017-10-31 15:00:00 [place] [facility] [id number] [facility] Results Test Description Test Time Test Comments Results Resul t Comments Source XR HIPS 2 VW LEFT 2023-08-20 5 18:27:11 ORDERING PHYSICIAN: GLADIS FRAIRE. HISTORY: left hip pain x 2 days, s/p fall TECHNIQUE: 3 views COMPARISON: None. FINDINGS: Alignment is anatomic. Joint spaces are maintained. No fracture isidentified. Soft tissue shadows are normal. There are 2 surgical clipsprojecting over the right L5 transverse process shadow. [facility]
[2024-07-26] MEDS ORDERED: LEVALBUTEROL 1.25 MG/3 ML NEB ONE (13:41)
[2024-07-26] MEDS ORDERED: NA CHLORIDE 0.9% 1,000 ML ONE (13:42)
[2024-07-26 14:00] LABS: Absolute Basophils 0.1 K/uL (0-0.5); Absolute Eosinophils 0.1 K/uL (0-0.5); Absolute Monocytes 0.6 K/uL (0.1-1.3); Absolute Neutrophil 6.8 K/uL (1.8-8.0); Basophils % 0.8 % (0-1.3); Eosinophils % 1.2 % (0-4.4); Hematocrit 43.9 % (36.0-45.0); Hemoglobin 14.9 g/dL (12.0-15.0); MCH 30.1 pg (27.0-35.0); MCHC 33.9 g/dL (32.0-36.0); MCV 88.8 fL (80-100); MPV 7.8 fL (7.6-11.3); Monocytes % 6.2 % (3.3-12.3); Neutrophils % 70.8 % (41.7-73.7); Nucleated Red Blood Cells % 0.2 % (0-0); Platelets 323 thou/uL (152-406); RBC Red Blood Cell Count 4.94 M/uL (3.86-4.86); Red Cell Distribution Width 13.1 % (12.1-15.2)
[2024-07-26 14:01] LABS: Specific Gravity 1.008 (1.005-1.030)
[2024-07-26 14:02] LABS: Specific Gravity 1.008 (1.005-1.030); Sqamous Epithelial <5 /HPF (None Seen); Urine Bacteria None Seen /HPF (<20); Urine Bilirubin NEGATIVE (Negative); Urine Blood Negative (Negative); Urine Clarity Turbid (Clear); Urine Color Colorless (Yellow); Urine Culture Reflex Order NOT NEEDED; Urine Glucose NEGATIVE (Negative); Urine Ketones NEGATIVE (Negative); Urine Micro Reflex YN NO BILL MICROSCOPIC; Urine Nitrite NEGATIVE (Negative); Urine Protein NEGATIVE (Negative); Urine RBC None Seen /HPF (None Seen); Urine Urobilinogen Normal (Normal); Urine WBC <5 /HPF (<5)
[2024-07-26] MEDS ORDERED: ACETAMINOPHEN 500 MG TAB ONE (14:17)
--- NOTE | 2024-07-26 14:21 | RAD REPORT ---
EXAM: Chest Pa And Lat (2 Views) HISTORY: 33 years Female COUGH COMPARISON: 05/30/2021 FINDINGS: LUNGS/PLEURA: The lungs are clear. No pleural effusions or pneumothorax. No pulmonary edema. CARDIAC/MEDIASTINUM: The cardiac silhouette is within normal limits. UPPER ABDOMEN: No significant abnormality. BONES: No acute abnormality. LINES/TUBES/OTHER: N/A IMPRESSION: No evidence of acute cardiopulmonary disease.
[2024-07-26 14:23] LABS: Albumin 3.9 g/dL (3.4-5.0); Albumin/Globulin Ratio 0.9 (1.1-1.8); Alkaline Phosphatase 71 U/L (45-117); BUN Blood Urea Nitrogen 5 mg/dL (7-18); Bicarbonate 28 mEq/L (21-32); Bilirubin Total 0.3 mg/dL (0.2-1.0); Globulin 4.3 g/dL (2.3-3.5); Glomerular Filtration Rate 97 ml/min (=/>90); Glucose Level 85 mg/dL (74-106); Protein, Total 8.2 g/dL (6.4-8.2); Sodium Level 139 mEq/L (136-145)
[2024-07-26 14:51] LABS: ALT/SGPT < 14 U/L (13-56); AST/SGOT 16 U/L (15-37); Magnesium 2.1 mg/dL (1.6-2.4)
[2024-07-26 15:01] LABS: Influenza A Ag Negative; Influenza B Ag Negative; SARS-CoV-2 Antigen Rapid Res Negative (Negative)
[2024-07-26] MEDS ORDERED: NA CHLORIDE 0.9% 2,000 ML ONE (15:51)
--- NOTE | 2024-07-26 17:12 | RAD REPORT ---
EXAMINATION: Head Brain Wo Cont CLINICAL INDICATION: Female, 33 years old.HEADACHE TECHNIQUE: Axial CT images from the skull base to the vertex without intravenous contrast. Coronal an d sagittal reformatted images were created from the data set. One or more of the following dose reduction techniques were used: Automated exposure control, adjustment of the mA and/or kV according to patient size, and/or iterative reconstruction. Unless otherwise specified, incidental findings do not require dedicated imaging follow-up. [id number]. COMPARISON: No prior exam. FINDINGS: INTRACRANIAL: No acute intracranial hemorrhage. No hydrocephalus. No mass effect or midline shift. No significant white matter disease. VASCULATURE: No visualized abnormalities in the arteries or dural venous sinuses. SCALP/SKULL: No calvarial fracture identified. No acute soft tissue abnormality. SINUSES: Air-fluid levels in the maxillary sinuses could reflect acute sinusitis. Ethmoid air cell an d sphenoid sinus thickening is also present. No significant mastoid fluid. IMPRESSION: No acute intracranial abnormality. Possible acute sinusitis.
--- NOTE | 2024-07-26 17:17 | RAD REPORT ---
EXAMINATION: CTA CHEST PE CLINICAL INDICATION: Female, 33 years old. COUGH TECHNIQUE: This examination was performed according to an angiographic protocol with 3D post-processi ng. This involves 3D reconstructions, MIPs, volume rendered images and/or shaded surface rendering. One or more of the following dose reduction techniques were used: Automated exposure control, adjustm ent of the mA and/or kV according to patient size, and/or iterative reconstruction. Unless otherwise specified, incidental findings do not require dedicated imaging follow-up. [id number]. COMPARISON: Same day chest radiograph. FINDINGS: LOWER NECK: Visualized thyroid gland and soft tissues are normal. LUNGS AND AIRWAYS: Subtle micronodularity present in the right lower lobeNo suspicious and/or stable pulmonary nodules. PLEURA: No pleural effusion. No pneumothorax. Hemidiaphragms are normally positioned. MEDIASTINUM AND LYMPH NODES: No mediastinal mass or fluid collection. Normal size mediastinal, hilar, and axillary lymph nodes. THORACIC AORTA: No thoracic aortic aneurysm. PULMONARY ARTERIES: Caliber is within normal limits. No pulmonary emboli identified. HEART: Normal heart size. No coronary calcifications.No significant pericardial effusion. OSSEOUS STRUCTURES AND CHEST WALL: No fracture or suspicious osseous lesions. UPPER ABDOMEN: No acute abnormalities. IMPRESSION: No evidence of pulmonary emboli to the subsegmental level. Subtle micronodularity in the right lower lobe likely reflecting mild infection or inflammation..
[2024-07-26] MEDS ORDERED: CEFTRIAXONE 1000 MG/VIAL ONE (17:35)
[2024-07-26] MEDS ORDERED: AZITHROMYCIN 500 MG INJ IVPB ONE (17:35)
[2024-07-26] MEDS ORDERED: NA CHLORIDE 0.9% 250 ML ONE (17:35)
--- NOTE | 2024-07-26 18:30 | ER ---
Nurse's Notes [facility] Name: Tabby Lagos Age: 33 yrs Sex: Female : 1990 Arrival Date: 07/26/2024 Time: 12:47 Bed 13 Private MD: Diagnosis: Pneumonia, unspecified organism;Acute sinusitis, unspecified;Sepsis, unspecified organism Presentation: 07/26 13:17 Chief complaint: Patient states: thought I had the flu 2 weeks ago , was taking Sudafed iw and nose spray , I still have pressure in face radiating to back of neck and also left ear is hurting , also has a cough and low grade fever. Coronavirus screen: Client presents with at least one sign or symptom that may indicate coronavirus-19. Ebola Screen: No symptoms or risks identified at this time. Initial Sepsis Screen: Does the patient meet any 2 criteria? No. Patient's initial sepsis screen is negative. Does the patient have a suspected source of infection? No. Patient's initial sepsis screen is negative. Risk Assessment: Do you want to hurt yourself or someone else? Patient reports no desire to harm self or others. Onset of symptoms was July 15, 2024. 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 - Infectious Disease History:: Denies. - Social history:: Smoking status: Patient reports the use of cigarette tobacco products, smokes one-half pack cigarettes per day. Screenin:[address] [facility] ED Fall Risk Assessment (Adult) History of falling in the last 3 months, kc6 including since admission No falls in past 3 months (0 pts) Confusion or Disorientation No (0 pts) Intoxicated or Sedated No (0 pts) Impaired Gait No (0 pts) Mobility Assist Device Used No (0 pt) Altered Elimination No (0 pt) Score/Fall Risk Level 0 - 2 = Low Risk Oriented to surroundings, Maintained a safe environment, Educated pt \T\ family on fall prevention, incl call for assistance when getting out of bed. Abuse screen: Denies threats or abuse. Denies injuries from another. Nutritional screening: No deficits noted. Tuberculosis screening: No symptoms or risk factors identified. Assessment: 14:06 General: Appears in no apparent distress. uncomfortable, well groomed, well developed, kc6 Behavior is calm, cooperative, appropriate for age, Reports chills for >3 days, fever for > 3 days, feeling ill for > 3 days, fatigue for >3 days. Pain: Complains of pain in face and nose Quality of pain is described as dull, pressure. Neuro: Level of Consciousness is awake, alert, obeys commands, Oriented to person, place, time, situation, Appropriate for age Reports headache. Cardiovascular: Capillary refill < 3 seconds. Respiratory: Reports shortness of breath at rest on exertion cough that is productive, persistent Airway is patent Trachea midline Respiratory effort is even, unlabored, Respiratory pattern is regular, symmetrical. GI: No signs and/or symptoms were reported involving the gastrointestinal system. : No signs and/or symptoms were reported regarding the genitourinary system. EENT: Reports nasal congestion. Derm: No signs and/or symptoms reported regarding the dermatologic system. Skin is intact, is healthy with good turgor, Skin is pink, warm \T\ dry. Musculoskeletal: No signs and/or symptoms reported regarding the musculoskeletal system. Circulation, motion, and sensation intact. Range of motion: intact in all extremities. 15:24 Reassessment: Patient appears in no apparent distress at this time. No changes from kc6 previously documented assessment. Patient and/or family updated on plan of care and expected duration. Pain level reassessed. Patient is alert, oriented x 3, equal unlabored respirations, skin warm/dry/pink. 16:21 Reassessment: Patient appears in no apparent distress at this time. No changes from kc6 previously documented assessment. Patient and/or family updated on plan of care and expected duration. Pain level reassessed. Patient is alert, oriented x 3, equal unlabored respirations, skin warm/dry/pink. 17:19 Reassessment: Patient appears in no apparent distress at this time. No changes from kc6 previously documented assessment. Patient and/or family updated on plan of care and expected duration. Pain level reassessed. Patient is alert, oriented x 3, equal unlabored respirations, skin warm/dry/pink. 18:19 Reassessment: Patient appears in no apparent distress at this time. No changes from kc6 previously documented assessment. Patient and/or family updated on plan of care and expected duration. Pain level reassessed. Patient is alert, oriented x 3, equal unlabored respirations, skin warm/dry/pink. 19:30 General: Appears in no apparent distress. comfortable, Behavior is calm, cooperative, rg5 appropriate for age. Pain: Complains of pain in right cheek and left cheek Quality of pain is described as dull, pressure. 19:30 Neuro: Level of Consciousness is awake, alert, obeys commands, Oriented to person, rg5 place, time, situation. Cardiovascular: Patient's skin is warm and dry. Respiratory: Airway is patent Trachea midline Respiratory effort is even, unlabored, Respiratory pattern is regular, symmetrical. GI: No signs and/or symptoms were reported involving the gastrointestinal system. : No signs and/or symptoms were reported regarding the genitourinary system. EENT: Reports nasal congestion pain. Derm: Skin is intact, is healthy with good turgor, Skin is dry, Skin is normal. Musculoskeletal: Circulation, motion, and sensation intact. Range of motion: intact in all extremities. 22:00 Reassessment: Patient and/or family updated on plan of care and expected duration. Pain rg5 level reassessed. Patient is alert, oriented x 3, equal unlabored respirations, skin warm/dry/pink. 07/27 00:00 Reassessment: No changes from previously documented assessment. Patient and/or family rg5 updated on plan of care and expected duration. Pain level reassessed. Patient is alert, oriented x 3, equal unlabored respirations, skin warm/dry/pink. Vital Signs: 07/26 13:17 BP 136 / 87; Pulse 123; Resp 19; Temp 98.2; Pulse Ox 96% on R/A; Weight 88.45 kg; iw Height 5 ft. 8 in. ; Pain 2/10; 14:19 BP 141 / 92; Pulse 105; Resp 19 S; Pulse Ox 98% on R/A; kc6 15:25 BP 130 / 85; Pulse 84; Resp 17 S; Pulse Ox 96% on R/A; kc6 16:21 BP 130 / 93; Pulse 78; Resp 18 S; Pulse Ox 100% on R/A; kc6 19:30 BP 124 / 86; Pulse 80; Resp 18; Temp 98(O); Pulse Ox 99% on R/A; Pain 6/10; rg5 20:00 BP 121 / 83; Pulse 81; Resp 18; Pulse Ox 99% on R/A; rg5 03 00:00 BP 113 / 78; Pulse 68; Resp 18; Temp 98(O); Pulse Ox 99% on R/A; Pain 0/10; rg5 07/26 13:17 Body Mass Index 29.65 (88.45 kg, 172.72 cm) iw 07/26 13:17 Pain Scale: Adult iw 19:30 Pain Scale: Adult rg5 07/27 00:00 Pain Scale: Adult rg5 ED Course: 07/26 12:49 Patient arrived in ED. mr 13:04 Shailesh Holley PA is PHCP. cp 13:04 Shailesh Draper MD is Attending Physician. cp 13:19 Triage completed. iw 13:20 Arm band placed on. iw 13:31 Selene Mejía, JOSIAS is Primary Nurse. kc6 14:02 Initial lab(s) drawn, by il, sent to lab. Urine collected: clean catch specimen, clear, kc6 EKG done, by ED staff, reviewed by Shailesh AMIN. Missed attempt(s): 20 gauge in right antecubital area. Inserted saline lock: 22 gauge in left forearm, using aseptic technique. Blood collected. Flushed with 10 mL NS. 14:03 Patient has correct armband on for positive identification. Bed in low position. Call kc6 light in reach. Side rails up X 1. Pulse ox on. NIBP on. Door closed. Noise minimized. Lights dimmed. Pillow given. Verbal reassurance given. 14:16 XRAY Chest Pa And Lat (2 Views) In Process Unspecified. EDMS 14:19 Patient requests pain medication. kc6 14:19 Diet: Patient given water. Tolerated well. kc6 16:58 CT Head Brain wo Cont In Process Unspecified. EDMS 17:08 CT Chest For PE Angio In Process Unspecified. EDMS 18:28 Bertha Casey MD is Hospitalizing Provider. cp 19:20 Report given to JOSIAS Villarreal. kc6 19:30 Provided Education on: needs for admit. rg5 19:30 No provider procedures requiring assistance completed. Patient admitted, IV remains in rg5 place. intact, No redness/swelling at site. Administered Medications: 14:02 Drug: NS 0.9% IV 1000 ml IV at 1000 ml once; to be given as a bolus over 60 minutes kc6 Route: IV; Rate: 1000 ml; Site: left forearm; 15:24 Follow up: Response: No adverse reaction; IV Status: Completed infusion; IV Intake: kc6 1000ml 14:02 Drug: Levalbuterol Inhalation 1.25 mg Inhalation once Route: Inhalation; kc6 14:52 Follow up: Response: No adverse reaction 6 14:19 Drug: Acetaminophen PO 1000 mg PO once Route: PO; kc6 14:52 Follow up: Response: No adverse reaction 6 15:58 Drug: NS 0.9% IV (30 ml/kg) 30 ml/kg IV at bolus once; Sepsis Protocol; to be given as kc6 a bolus over 90 minutes. Route: IV; Rate: bolus; Site: left forearm; 19:39 Follow up: Response: No adverse reaction; IV Status: Completed infusion; IV Intake: kc6 1640ml 19:30 Drug: Rocephin IV 1 grams IV at calculated rate once; Given slow IV push per pharmacy rg5 instructions Route: IV; Rate: calculated rate; Site: left forearm; 20:30 Follow up: IV Status: Completed infusion; IV Intake: 50ml rg5 19:30 Drug: Ketorolac IVP 15 mg IVP once Route: IVP; Site: left forearm; rg5 20:00 Follow up: Response: No adverse reaction; Pain is decreased rg5 19:44 Drug: Zithromax IVPB 500 mg IVPB once over 1 hrs; mix in 250 mL NS Route: IVPB; Infused rg5 Over: 1 hrs; Site: left forearm; 21:00 Follow up: IV Status: Completed infusion; IV Intake: 250ml rg5 Medication: 19:30 VIS not applicable for this client. rg5 Intake: 15:24 IV: 1000ml; Total: 1000ml. kc6 19:39 IV: 1640ml; Total: 2640ml. kc6 20:30 IV: 50ml; Total: 2690ml. rg5 21:00 IV: 250ml; Total: 2940ml. rg5 Outcome: 18:29 Decision to Hospitalize by Provider. cp 19:30 Admitted to ER Hold. Please see [facility] for further documentation. rg5 19:30 Condition: stable 19:30 Instructed on the need for admit, 07/27 00:35 Patient left the ED. rg5 Signatures: Dispatcher [employer] EDMS Brenda Jain, Reg Reg mr Divya Perkins RN RN iw Shailesh Holley PA PA Selene Bush RN RN kc6 Scottie Ramos RN RN rg5 Corrections: (The following items were deleted from the chart) 07/26 13:21 13:17 BP 136 / 87; Pulse 123bpm; Resp 19bpm; Pulse Ox 96% RA; Temp 98.2F; Pain 2/10, iw Adult; iw
--- NOTE | 2024-07-26 18:30 | EDPHYS ---
Physician Documentation [facility] Name: Tabby Lagos Age: 33 yrs Sex: Female : 1990 Arrival Date: 07/26/2024 Time: 12:47 Bed 13 Private MD: ED Physician Shailesh Draper HPI: 07/26 13:40 This 33 yrs old Female presents to ER via Ambulatory with complaints of Facial pain, cp Fever. 13:40 The patient reports fever, not measured (subjective). cp 13:40 Associated signs and symptoms: Pertinent positives: cough and sinus congestion times 2 cp weeks, Pertinent negatives: diarrhea, hemoptysis, vomiting, abdominal pain. Severity of symptoms: in the emergency department the symptoms are worse moderately. 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 - Infectious Disease History:: Denies. - Social history:: Smoking status: Patient reports the use of cigarette tobacco products, smokes one-half pack cigarettes per day. ROS: 13:45 Constitutional: Positive for body aches, fever, cp 13:45 Eyes: Negative for injury, pain, redness, and discharge, cp 13:45 ENT: Positive for sinus congestion, sinus pain, Negative for drainage from ear(s), difficulty swallowing, difficulty handling secretions, 13:45 Neck: Negative for stiffness, 13:45 Respiratory: Positive for cough, Negative for wheezing, 13:45 Abdomen/GI: Negative for abdominal pain, vomiting, diarrhea, constipation, 13:45 Neuro: Positive for headache, Negative for altered mental status, dizziness, weakness, 13:45 All other systems are negative, Exam: 13:45 Constitutional: The patient appears in no acute distress, alert, awake, non-toxic, well cp developed, well nourished, 13:45 Head/face: Sinus tenderness, that is moderate, is located over the right frontal sinus, left frontal sinus, right maxillary sinus and left maxillary sinus, 13:45 Eyes: Periorbital structures: appear normal, Pupils: equal, round, and reactive to light and accomodation, Extraocular movements: intact throughout, Conjunctiva: normal, no exudate, no injection, Sclera: no appreciated abnormality, Lids and lashes: appear normal, bilaterally, 13:45 ENT: External ear(s): are unremarkable, Ear canal(s): are normal, clear, TM's: dullness, bilaterally, Nose: is normal, Mouth: Lips: moist, Oral mucosa: moist, Posterior pharynx: Airway: no evidence of obstruction, patent, 13:45 Neck: ROM/movement: Meningeal signs: are not present, nuchal rigidity, is not appreciated, 13:45 Chest/axilla: Inspection: normal, 13:45 Cardiovascular: Rate: tachycardic, Rhythm: regular, 13:45 Respiratory: the patient does not display signs of respiratory distress, Respirations: normal, no use of accessory muscles, no retractions, labored breathing, is not present, Breath sounds: bronchial sounds, that are mild, are heard diffusely, decreased breath sounds, are not appreciated, stridor, is not appreciated, wheezing: is not appreciated, 13:45 Abdomen/GI: Inspection: abdomen appears normal, Palpation: abdomen is soft and non-tender, in all quadrants, 13:45 Back: CVA tenderness, is absent, 13:45 Skin: no rash present. 13:45 Neuro: Orientation: to person, place \T\ time. Mentation: is normal, Motor: moves all fours, strength is normal, Sensation: is normal, 14:12 ECG was reviewed by the Attending Physician. cp Vital Signs: 13:17 BP 136 / 87; Pulse 123; Resp 19; Temp 98.2; Pulse Ox 96% on R/A; Weight 88.45 kg; iw Height 5 ft. 8 in. ; Pain 2/10; 14:19 BP 141 / 92; Pulse 105; Resp 19 S; Pulse Ox 98% on R/A; kc6 15:25 BP 130 / 85; Pulse 84; Resp 17 S; Pulse Ox 96% on R/A; kc6 16:21 BP 130 / 93; Pulse 78; Resp 18 S; Pulse Ox 100% on R/A; kc6 19:30 BP 124 / 86; Pulse 80; Resp 18; Temp 98(O); Pulse Ox 99% on R/A; Pain 6/10; rg5 20:00 BP 121 / 83; Pulse 81; Resp 18; Pulse Ox 99% on R/A; rg5 07/27 00:00 BP 113 / 78; Pulse 68; Resp 18; Temp 98(O); Pulse Ox 99% on R/A; Pain 0/10; rg5 07/26 13:17 Body Mass Index 29.65 (88.45 kg, 172.72 cm) iw 07/26 13:17 Pain Scale: Adult iw 19:30 Pain Scale: Adult rg5 07/27 00:00 Pain Scale: Adult rg5 MDM: 07/26 13:16 Medical Screening Exam initiated 14:00 Differential diagnosis: viral Infection, bacterial infection, bronchitis, pneumonia cp meningitis, sinusitis, sepsis. 16:30 Post IV fluid administration reassessment for Sepsis: Client prescribed 30 mL/kg IVF. Sepsis focused reassessment complete. Heart: Regular rate/rhythm noted. Current vital signs reviewed: Yes. 18:30 Data reviewed: vital signs, nurses notes, lab test result(s), EKG, radiologic studies, cp CT scan, plain films, and as a result, I will admit patient. 18:30 Management of patient was discussed with the following: Hospitalist: DR Casey will admit cp after discussion. 18:30 I considered the following discharge prescriptions or medication management in the emergency department Medications were administered in the Emergency Department. See MAR. 18:30 Independent interpretation of the following test(s) in the Emergency Department EKG: cp See my EKG interpretation above. Counseling: I had a detailed discussion with the patient and/or guardian regarding the historical points, exam findings, and any diagnostic results supporting the discharge/admit diagnosis, lab results, radiology results, the need for further work-up and treatment in the hospital. Response to treatment: the patient's symptoms have markedly improved after treatment. 07/26 13:37 Order name: COVID-19 Ag + Flu A+B Ag; Complete Time: 15:46 07/26 16:49 Interpretation: Reviewed. 07/26 13:37 Order name: Urinalysis W/Microscopic; Complete Time: 14:55 07/26 14:56 Interpretation: Normal except: [facility] Turbid; UPH 8.0. 07/26 13:37 Order name: CBC with Diff; Complete Time: 14:55 07/26 14:56 Interpretation: Normal except: RBC 4.94. 07/26 13:37 Order name: CMP; Complete Time: 14:55 07/26 16:48 Interpretation: Normal except: BUN 5; GLOB 4.3; A/G 0.9. 07/26 13:37 Order name: Magnesium; Complete Time: 14:55 07/26 16:49 Interpretation: Reviewed. 07/26 13:37 Order name: Test, Urine; Complete Time: 14:55 07/26 16:49 Interpretation: Reviewed. 07/26 13:37 Order name: Lactate w/ 2H reflex if indic.; Complete Time: 14:55 07/26 14:55 Interpretation: Reviewed. 07/26 14:56 Order name: Ghost Lactate-NO COLLECT Timer; Complete Time: 17:02 EDVT 07/26 17:26 Order name: Blood Culture Adult (2) cp 07/26 17:51 Order name: Lactate Sepsis 2 HR Follow-up; Complete Time: 18:09 EDVT 07/26 23:11 Order name: Basic Metabolic Panel EDVT 07/26 23:11 Order name: Basic Metabolic Panel EDVT 07/26 23:11 Order name: CBC with Automated Diff EDVT 07/26 23:11 Order name: CBC with Automated Diff EDMS / 23:11 Order name: Lipid Profile EDVT 07/26 23:11 Order name: Lipid Profile EDVT /08 23:11 Order name: Sputum Culture EDVT 07/26 13:37 Order name: XRAY Chest Pa And Lat (2 Views); Complete Time: 14:55 07/26 14:56 Interpretation: Report reviewed. 07/26 16:02 Order name: CT Head Brain wo Cont; Complete Time: 17:23 07/26 17:24 Interpretation: Report reviewed. 07/26 16:02 Order name: CT Chest For PE Angio; Complete Time: 17:23 07/26 17:24 Interpretation: Report reviewed. 07/26 13:37 Order name: EKG - Nurse/Tech; Complete Time: 14:02 07/26 13:37 Order name: IV; Complete Time: 14:02 07/26 15:48 Order name: Misc. Order: total of 2640 cc of fluid need to be given; Complete Time: cp 15:58 EC:12 Rate is 97 beats/min. Rhythm is regular. TN interval is normal. QRS interval is normal. cp QT interval is normal. T waves are Inverted in lead aVR. Interpreted by me. Reviewed by me. Administered Medications: 14:02 Drug: NS 0.9% IV 1000 ml IV at 1000 ml once; to be given as a bolus over 60 minutes kc6 Route: IV; Rate: 1000 ml; Site: left forearm; 15:24 Follow up: Response: No adverse reaction; IV Status: Completed infusion; IV Intake: kc6 1000ml 14:02 Drug: Levalbuterol Inhalation 1.25 mg Inhalation once Route: Inhalation; kc6 14:52 Follow up: Response: No adverse reaction [facility] 14:19 Drug: Acetaminophen PO 1000 mg PO once Route: PO; kc6 14:52 Follow up: Response: No adverse reaction [facility] 15:58 Drug: NS 0.9% IV (30 ml/kg) 30 ml/kg IV at bolus once; Sepsis Protocol; to be given as kc6 a bolus over 90 minutes. Route: IV; Rate: bolus; Site: left forearm; 19:39 Follow up: Response: No adverse reaction; IV Status: Completed infusion; IV Intake: kc6 1640ml 19:30 Drug: Rocephin IV 1 grams IV at calculated rate once; Given slow IV push per pharmacy rg5 instructions Route: IV; Rate: calculated rate; Site: left forearm; 20:30 Follow up: IV Status: Completed infusion; IV Intake: 50ml rg5 19:30 Drug: Ketorolac IVP 15 mg IVP once Route: IVP; Site: left forearm; rg5 20:00 Follow up: Response: No adverse reaction; Pain is decreased rg5 19:44 Drug: Zithromax IVPB 500 mg IVPB once over 1 hrs; mix in 250 mL NS Route: IVPB; Infused rg5 Over: 1 hrs; Site: left forearm; 21:00 Follow up: IV Status: Completed infusion; IV Intake: 250ml rg5 Disposition: 07/27 20:09 Chart complete. cp Disposition Summary: 07/26/24 18:29 Hospitalization Ordered Notes: Hospitalization Status: Inpatient Admission cp Provider: Bertha Casey cp Location: Telemetry/[facility] (Inpatient) cp Condition: Stable cp Problem: new cp Symptoms: have improved cp Bed/Room Type: Standard cp Room Assignment: 231(07/26/24 23:20) vk Diagnosis - Pneumonia, unspecified organism cp - Acute sinusitis, unspecified cp - Sepsis, unspecified organism cp Forms: - Medication Reconciliation Form cp - SBAR form cp - Leadership Thank You Letter cp Critical care time excluding procedures: 20:09 Critical care time: Bedside Care: 5 minutes, Consultation: 25 minutes. Total time: 30 cp minutes Signatures: Dispatcher [employer] EDMS Divya Perkins, RN RN Shailesh Chaparro PA PA cp Selene Mejía, RN RN kc6 Zabrina Trevizo vk Scottie Ramos, RN RN rg5 Corrections: (The following items were deleted from the chart) 07/26 13:38 13:38 COVID-19 Ag + Flu A+B Ag+I.LAB.BRZ ordered. EDMS EDMS 13:38 13:38 Urinalysis W/Microscopic+U.LAB.BRZ ordered. EDMS EDMS 13:38 13:38 CBC+H.LAB.BRZ ordered. EDMS EDMS 13:38 13:38 COMPREHENSIVE METABOLIC PANEL+C.LAB.BRZ ordered. EDMS EDMS 13:38 13:38 MAGNESIUM+C.LAB.BRZ ordered. EDMS EDMS 13:38 13:38 Test, Urine+UC.LAB.BRZ ordered. EDMS EDMS 13:38 13:38 LACTATE+C.LAB.BRZ ordered. EDMS EDMS 13:38 13:38 Chest Pa And Lat (2 Views)+RAD.RAD.BRZ ordered. EDMS EDMS 23:20 18:29 cp vk
[2024-07-26] MEDS ORDERED: KETOROLAC 30 MG/ML INJ ONE (19:06)
[2024-07-26] MEDS ORDERED: ONDANSETRON 4 MG/2 ML VIAL IV PRN (23:05)
--- NOTE | 2024-07-26 23:15 | P.HP ---
Patient History Date of Service: 07/26/24 History of Present Illness: This is a 33-year-old female with minimal past medical history presenting with sinus pressure for 1 week. She states her kids have been sick with the flu at home. Associated symptoms include cough, sweating. She states that the facial pain radiates to the back of the neck. She denies vomiting or diarrhea. She took Sudafed and ibuprofen. As well as a nasal spray. She recorded a temperature of 101. The last time she fevered was last Sunday. Allergies No Know Allergy (Uncoded 01/27/17 22:26) Unknown No Known Al Allergy (Uncoded 01/24/17 22:59) Unknown No Known Allerg Allergy (Uncoded 09/28/17 13:42) Unknown No Known Allergies Allergy (Uncoded 10/23/17 23:05) Unknown Review of Systems 10-point ROS is otherwise unremarkable General: As per HPI Physical Examination - Physical Exam General: Alert, In no apparent distress HEENT: Atraumatic, Normocephalic Neck: Supple, 2+ carotid pulse no bruit Respiratory: Clear to auscultation bilaterally Cardiovascular: No edema Capillary refill: <2 Seconds Gastrointestinal: Normal bowel sounds Musculoskeletal: No clubbing Integumentary: No rashes Neurological: Normal speech Lymphatics: No axilla or inguinal lymphadenopathy - Studies Laboratory Data (last 24 hrs) 07/26/24 07/26/24 13:51 13:51 WBC 9.60 Hgb 14.9 Hct 43.9 Plt Count 323 Sodium 139 Potassium 4.0 BUN 5 L Creatinine 0.82 Glucose 85 Magnesium 2.1 Total Bilirubin 0.3 AST 16 ALT < 14 Alkaline Phosphatase 71 Assessment and Plan - Plan Acute sinusitis Pneumonia Lactic acidosis resolved Continue Rocephin and azithromycin Sputum culture pending Initial lactate was 3.5 now down to 0.9 Tylenol as needed DVT prophylaxis with Lovenox Plan to discharge in: 24 Hours - Advance Directives Does patient have a Living Will: No Does patient have a Durable POA for Healthcare: No
[2024-07-27 01:05] VITALS: O2SAT 96; BMI 30.9
[2024-07-27 05:31] LABS: Absolute Basophils 0.1 K/uL (0-0.5); Absolute Eosinophils 0.3 K/uL (0-0.5); Absolute Lymphocytes (CBC) 3.5 K/uL (0.7-4.9); Absolute Monocytes 0.8 K/uL (0.1-1.3); Absolute Neutrophil 5.3 K/uL (1.8-8.0); Basophils % 0.6 % (0-1.3); Eosinophils % 3.4 % (0-4.4); Hematocrit 35.4 % (36.0-45.0); Hemoglobin 12.2 g/dL (12.0-15.0); Lymphocytes % 34.8 % (15.3-44.8); MCH 30.9 pg (27.0-35.0); MCHC 34.6 g/dL (32.0-36.0); MCV 89.3 fL (80-100); Monocytes % 7.6 % (3.3-12.3); Neutrophils % 53.6 % (41.7-73.7); Platelets 282 thou/uL (152-406); RBC Red Blood Cell Count 3.96 M/uL (3.86-4.86); Red Cell Distribution Width 12.8 % (12.1-15.2)
[2024-07-27 05:47] LABS: Anion Gap 8.1 mEq/L (5.0-15.0); Potassium 4.1 mEq/L (3.5-5.1)
[2024-07-27] MEDS: CEFTRIAXONE 1,000 MG in NA CHLORIDE 0.9% 50 ML IVPB SCH (08:27)
[2024-07-27] MEDS: AZITHROMYCIN 250 MG TAB PO SCH (08:28)
[2024-07-27] MEDS: ENOXAPARIN 40 MG/0.4 ML SQ SCH (08:28)
[2024-07-27 08:46] VITALS: TEMP 97.9
[2024-07-27 12:42] VITALS: BP 113/70
[2024-07-27] MEDS: HYDROCODONE/APAP 5/325 MG TAB PO ONE (13:12)
--- NOTE | 2024-07-29 11:11 | EKG ---
Test Date: 2024-07-26 Test Time: 14:06:27 Customer Relationship Specialist: FLY MEASUREMENT RESULTS: Intervals: Rate: 97 MT: 122 QRSD: 74 QT: 348 QTc: 441 [place]: P: 66 MT: 122 QRS: 86 T: 40 INTERPRETIVE STATEMENTS: Normal sinus rhythm ST abnormality, possible digitalis effect Abnormal ECG Compared to ECG 05/30/2021 11:40:57 ST (T wave) deviation now present Electronically Signed On 07-29-24 11:02:40 CDT by Balbir Head
--- NOTE | 2024-08-01 12:48 | P.DS ---
Discharge Date: 07/27/24 Disposition: ROUTINE DISCHARGE Discharge Condition: GOOD Brief History of Present Illness: This is a 33-year-old female with minimal past medical history presenting with sinus pressure for 1 week. She states her kids have been sick with the flu at home. Associated symptoms include cough, sweating. She states that the facial pain radiates to the back of the neck. She denies vomiting or diarrhea. She took Sudafed and ibuprofen. As well as a nasal spray. She recorded a temperature of 101. The last time she fevered was last Sunday. Hospital Course: Patient is clinically doing well. Patient denies any new complaints. Respiratory status is stable. Continue with Tamiflu. Continue with prednisone and inhaler therapy. Patient will follow-up with PCP as an outpatient. Vital Signs/Physical Exam: Temp Pulse Resp BP Pulse Ox 97.9 F 78 20 113/70 96 07/27/24 12:00 07/27/24 12:00 07/27/24 12:00 07/27/24 12:00 07/27/24 12:00 General: Alert, In no apparent distress, Oriented x3 Laboratory Data at Discharge: WBC 10.00 thou/uL (4.3-10.9) 07/27/24 05:07 Hgb 12.2 g/dL (12.0-15.0) D 07/27/24 05:07 Hct 35.4 % (36.0-45.0) L 07/27/24 05:07 Plt Count 282 thou/uL (152-406) 07/27/24 05:07 Sodium 140 mEq/L (136-145) 07/27/24 05:07 Potassium 4.1 mEq/L (3.5-5.1) 07/27/24 05:07 BUN 6 mg/dL (7-18) L 07/27/24 05:07 Creatinine 0.57 mg/dL (0.55-1.02) 07/27/24 05:07 Glucose 93 mg/dL (74-106) 07/27/24 05:07 Magnesium 2.1 mg/dL (1.6-2.4) 07/26/24 13:51 Total Bilirubin 0.3 mg/dL (0.2-1.0) 07/26/24 13:51 AST 16 U/L (15-37) 07/26/24 13:51 ALT < 14 U/L (13-56) 07/26/24 13:51 Alkaline Phosphatase 71 U/L (45-117) 07/26/24 13:51 Triglycerides 60 mg/dL (<150) 07/27/24 05:07 Cholesterol 125 mg/dL (<200) 07/27/24 05:07 HDL Cholesterol 39 mg/dL (40-60) L 07/27/24 05:07 Cholesterol/HDL Ratio 3.21 07/27/24 05:07 Home Medications: Azithromycin Tab [Zithromax*] 250 mg PO DAILY #5 tab 07/27/24 Cefdinir [Cefdinir*] 300 mg PO BID #14 cap 07/27/24 Fluconazole [Diflucan] 100 mg PO DAILY #5 tab 07/27/24 Hydrocodone 5/APAP 325 [[place] 5/325] 1 tab PO Q8H PRN #20 tab 07/27/24 Hydrocodone 5/APAP 325 [[place] 5/325] 1 tab PO Q8H PRN #20 tab 07/27/24 Mometasone Furoate [Nasonex 24Hr Allergy] 17 ml NS BID #1 inh 07/27/24 predniSONE [Prednisone] 20 mg PO DAILY #5 tab 07/27/24 New Medications: Cefdinir [Cefdinir*] 300 mg PO BID #14 cap Fluconazole [Diflucan] 100 mg PO DAILY #5 tab Mometasone Furoate [Nasonex 24Hr Allergy] 17 ml NS BID #1 inh Hydrocodone 5/APAP 325 [[place] 5/325] 1 tab PO Q8H PRN #20 tab PRN Reason: Pain Hydrocodone 5/APAP 325 [[place] 5/325] 1 tab PO Q8H PRN #20 tab PRN Reason: Pain predniSONE [Prednisone] 20 mg PO DAILY #5 tab Azithromycin Tab [Zithromax*] 250 mg PO DAILY #5 tab Physician Discharge Instructions: -DC IV and DC home -Follow-up with PCP in 1 to 2 weeks -Follow-up with ENT, Dr. Tabby Castelan, in 1 to 2 weeks -Please call Dr. Terry at [phone] if any questions regarding hospital stay -Please call nursing station at [phone] if any nursing or medication questions -Return to the emergency room if symptoms worsen -Patient was advised to not take the Zithromax and Diflucan together Diet: Regular Activity: Fall precautions Followup: Tabby Castelan MD [ACTIVE - CAN ADMIT] - NONE,NONE [Primary Care Provider] - Physician Review: Patient Assessed, Agree with Above Assessment and Plan Time spent managing pt's care (in minutes): 35
== END 2024-07-27 13:52 | disposition home or self-care (01) | DRG 152 ==
LOC: ER 12:47 → ERHOLD 22:54 → 2ND 07-27 00:27
PROVIDERS: ADMIT Family Medicine; ATTEND Hospitalist
DX: J01.90 Acute sinusitis, unspecified (principal); J18.9 Pneumonia, unspecified organism; E87.20 Acidosis, unspecified; F17.210 Nicotine dependence, cigarettes, uncomplicated; Z11.52 Encounter for screening for COVID-19; Z90.49 Acquired absence of other specified parts of digestive tract; Z79.899 Other long term (current) drug therapy
CPT/HCPCS: 36415; 70450; 71046; 71275; 80048; 80053; 80061; 81001; 81025; 83605; 83735; 85025; 87040; 87428; 93005; 96361; 96365; 96366; 96367; 96375; 99285; J0696; J1650; J7030; J7050; J7614; Q9967